=== PATIENT | female | born 1965 | race Caucasian/White ===

== ENCOUNTER 2020-05-22 09:35 | Outpatient (CLI) | payer OTHER, SELFPAY ==
--- NOTE | ~2020-05-22 | US_ITS ---
US breast LT limited 05/22/2020 10:20 Indication: Follow-up left breast masses Procedure: High-resolution Limited left breast ultrasound Comparison: 11/14/2019 Findings: Stable appearance to hypoechoic mass of the left breast at 3:00 near the nipple measuring 6 mm maximum dimension, possibly cluster of microcysts. Stable complicated cyst of the left breast at 3:00 near the nipple measuring 4.5 mm maximum dimension. Impression: 1: Stable likely benign left breast masses. BI-RADS CATEGORY 3-PROBABLY BENIGN FINDING RECOMMENDATION: Six-month follow-up diagnostic bilateral mammogram and left breast ultrasound recomme nded Reviewed, dictated and finalized at location A. Impression: 1: Stable likely benign left breast masses. BI-RADS CATEGORY 3-PROBABLY BENIGN FINDING RECOMMENDATION: Six-month follow-up diagnostic bilateral mammogram and left nikkie ast ultrasound recommended
== END 2020-05-22 09:36 | disposition home or self-care (01) ==
LOC: CHSIMG 09:37
PROVIDERS: PCP Nurse Practitioner Family; Visit Provider Nurse Practitioner Family
DX: R92.8 Other abnormal and inconclusive findings on diagnostic imaging of breast (principal)
CPT/HCPCS: 76642

== ENCOUNTER 2020-12-03 09:45 | Outpatient (CLI) | payer OTHER, SELFPAY ==
--- NOTE | ~2020-12-03 | MMUS_ITS ---
EXAMINATION: MM diagnostic scott BI w fuentes, US breast BI limited HISTORY: Follow-up left breast masses. TECHNIQUE: Additional 3-D tomosynthesis images of the breasts were performed and synthetic 2-D images were generated. CAD analysis was submitted and interpreted. High resolution bilateral breast ultraso und was performed. COMPARISON: Comparison to multiple prior studies sequentially, with oldest reviewed study dated 02/2012. BREAST PARENCHYMAL COMPOSITION: Breast composed of scattered areas of fibroglandular density. FINDINGS: MAMMOGRAPHIC FINDINGS: There is a radiolucent mass in the outer aspect of the right breast on CC view measuring approximatel y 6 mm, posterior third. There are no suspicious masses, calcifications or architectural distortion i n the left breast to suggest malignancy. ULTRASOUND: Right breast ultrasound: At 10:00, 2 cm from the nipple, there is a 6 mm oval hypoechoic mass with echogenic hilum, likely charito ign intramammary lymph node. At 9:00, 2 cm from the nipple, there is a 3 mm cyst. At 9:00, 2 cm from the nipple there is a second 3 mm cyst. Left breast ultrasound: At 3:00 near the nipple there is an oval hypoechoic mass with echogenic hilum measuring 8 mm, likely intramammary lymph node. At 3:00 near the nipple there is a second oval hypoechoic mass with echogeni c hilum measuring 6 mm, likely benign intramammary lymph node. IMPRESSION: 1. Probable benign bilateral intramammary lymph nodes by ultrasound. 2. Recommend 6 month follow-up bilateral breast ultrasound BI-RADS category 3, probably benign findings. Reviewed, dictated and finalized at location A. RAL FABRICATOR IMPRESSION: 1. Probable benign bilateral intramammary lymph nodes by ultrasound. 2. Recommend 6 month follow-up bilateral breast ultrasound BI-RADS category 3, probably benign findings.
== END 2020-12-03 09:46 | disposition home or self-care (01) ==
PROVIDERS: PCP Nurse Practitioner Family; Visit Provider Nurse Practitioner Family
DX: R92.8 Other abnormal and inconclusive findings on diagnostic imaging of breast (principal); Z12.4 Encounter for screening for malignant neoplasm of cervix; Z13.89 Encounter for screening for other disorder
CPT/HCPCS: 76642; 77062; 77066; 87624; 88175; G0145; G0279

== ENCOUNTER 2020-12-19 15:54 | Outpatient (NON) | payer OTHER, SELFPAY | END 2020-12-19 15:55 | LOC: CHSLAB 15:56 | PROVIDERS: PCP Nurse Practitioner Family; Visit Provider Nurse Practitioner Family | DX: Z12.4 Encounter for screening for malignant neoplasm of cervix (principal); Z13.89 Encounter for screening for other disorder | CPT/HCPCS: 87624; 88175; G0145 ==

== ENCOUNTER 2021-08-14 12:33 | Outpatient (CLI) | payer OTHER, SELFPAY ==
--- NOTE | ~2021-08-14 | US_ITS ---
US breast BI limited DATE: 08/14/2021 13:03 INDICATION: Short-term follow-up of bilateral probable benign findings TECHNIQUE: Targeted ultrasound examination at sites of prior abnormalities reported on 12/03/2020 bila teral Limited breast ultrasound examination COMPARISON: 12/03/2020 bilateral diagnostic mammogram and bilateral limited breast ultrasound FINDINGS: No suspicious mass or shadowing of either breast is detected. Right breast: 9:00 2 cm from nipple: 4.5 x 4.2 x 5 mm simple cyst 10:00 2 cm from nipple: Parallel circumscribed hypoechoic lesion without internal vascularity or susp icious shadowing, consistent with benign process Subareolar area: 1.8 x 1.4 x 1.2 mm cyst Left breast: 3:00 near nipple: Parallel circumscribed multiply septated cyst measuring 6.5 x 3.5 x 3.8 mm, without internal vascularity or suspicious shadowing, benign 3:00 near nipple: 1.8 x 1.4 x 2.0 mm simple cyst IMPRESSION: BI-RADS Category 2: Benign Recommendation: Routine mammographic screening Reviewed, dictated and finalized at Location A. Reviewed, dictated and finalized at location A.
== END 2021-08-14 12:34 | disposition home or self-care (01) ==
LOC: CHSIMG 12:35
PROVIDERS: PCP Nurse Practitioner Family; Visit Provider Nurse Practitioner Family
DX: R92.8 Other abnormal and inconclusive findings on diagnostic imaging of breast (principal)
CPT/HCPCS: 76642

== ENCOUNTER 2021-12-24 12:57 | Outpatient (CLI) | payer OTHER, SELFPAY ==
--- NOTE | ~2021-12-24 | MM_ITS ---
EXAMINATION: MM screening scott BI w fuentes HISTORY: Screening TECHNIQUE: Craniocaudal and mediolateral oblique 3-D tomosynthesis images were obtained and synthetic 2-D images were generated. CAD analysis was submitted and interpreted. COMPARISON: Comparison to multiple prior studies sequentially, with oldest reviewed study dated 02/2012. BREAST PARENCHYMAL COMPOSITION: There are scattered areas of fibroglandular density. FINDINGS: There is no evidence of suspicious mass, calcification, or architectural distortion to sugg est malignancy in either breast. There has been no suspicious interval change. IMPRESSION: 1. No mammographic evidence of malignancy. 2. Recommend routine screening mammography in one year. BI-RADS Category 1: Negative Reviewed, dictated and finalized at location A. [employer]ING [employer]IAN
--- NOTE | ~2021-12-24 | DEXA_ITS ---
Bone Density Report Name: ARIELLA ESPINOSA Age: 56 Sex: Female Ethnicity: White Date of : 1965 Indication: postmenopausal; screening for osteoporosis; height loss; prior fracture; Referring Provider: Jo-Ann Maciel Study: Bone densitometry was performed. Exam Date: December 24, 2021 Accession number: [id number] Bone Density: Region BMD T-score Z-score Classification AP Spine(L1, L2, L3) 0.865 -1.4 -0.3 Osteopenia Femoral Neck (Left) 0.668 -1.6 -0.6 Osteopenia Total Hip (Left) 0.768 -1.4 -0.7 Osteopenia Femoral Neck (Right) 0.658 -1.7 -0.6 Osteopenia Total Hip (Right) 0.829 -0.9 -0.2 Normal Femoral Neck Mean 0.663 -1.7 -0.6 Osteopenia Total Hip Mean 0.799 -1.2 -0.5 Osteopenia World Health Organization criteria for BMD impression classify patients as: Normal (T-score at or above -1.0), Osteopenia (T-score between -1.0 and -2.5), or Osteoporosis (T-score at or below -2.5). 10-year Fracture Risk(1): Major Osteoporotic Fracture 12% Hip Fracture 1.2% Reported Risk Factors: [place] (), Neck BMD=0.658, BMI=32.1, previous fracture (1) FRAX(R) Version 3.08. Fracture probability calculated for an untreated patient. Fracture probability may be lower if the patient has received treatment. Clinical Information Provided by Patient: Has had a low trauma fracture Has used the following medications: Fosamax (i.e. alendronate), Vitamin D Patient maximum height was 62 Menopause Age: 46 No regular weight bearing exercise Does not regularly consume dairy products Drinks caffeinated beverages Onset of menses at age 12 Number of children 4 Impression: The patient has low bone mass, based on the Right Femoral Neck T-score. The patient has risk factors, including: previous fracture. Discussion: BONE DENSITY IS LOW AT ONE OR MORE SKELETAL SITES. This patient's lowest T-score is low at one or more skeletal sites. It meets the World Health Organization's (WHO) criteria for ?low bone mass? (T-score between -1.0 and -2.5). The patient's 10-year risk of fracture as calculated by FRAX is less than the threshold where pharmacological therapy is recommended by the National Osteoporosis Foundation (NOF). However, all treatment decisions require clinical judgment and consideration of individual patient factors, including patient preferences, comorbidities, previous drug use, risk factors not captured in the FRAX model (e.g., frailty, falls, vitamin D deficiency, increased bone turnover, interval significant decline in bone density) and possible under or overestimation of fracture risk by FRAX. The patient should follow a healthful lifestyle (good nutrition with adequate calcium and vitamin D, and appropriate weight-bearing exercise). Follow-Up: Consider repeating this study in 2 to 3
== END 2021-12-24 12:58 | disposition home or self-care (01) ==
LOC: CHSIMG 12:59
PROVIDERS: PCP Nurse Practitioner Family; Visit Provider Nurse Practitioner Family
DX: M81.0 Age-related osteoporosis without current pathological fracture (principal); Z12.31 Encounter for screening mammogram for malignant neoplasm of breast
CPT/HCPCS: 77063; 77067; 77080; 77081

== ENCOUNTER 2024-08-12 09:54 | Outpatient (CLI) | payer OTHER, SELFPAY ==
--- NOTE | ~2024-08-12 | MM_ITS ---
EXAMINATION: MM screening scott BI w fuentes HISTORY: Screening TECHNIQUE: Craniocaudal and mediolateral oblique 3-D tomosynthesis images were obtained and synthetic 2-D images were generated. CAD analysis was submitted and interpreted. COMPARISON: Comparison to multiple prior studies sequentially, with oldest reviewed study dated 11/14. BREAST PARENCHYMAL COMPOSITION: Not dense: There are scattered areas of fibroglandular density. FINDINGS: There are developing bilateral breast masses. There are no suspicious calcifications or arc hitectural distortion. IMPRESSION: 1. Developing bilateral breast masses. 2. Additional mammographic views and possible breast ultrasound are recommended. BI-RADS Category 0: Incomplete: Needs additional imaging evaluation. Reviewed, dictated and finalized at location B. IMPRESSION: 1. Developing bilateral breast masses. 2. Additional mammographic views and possible breast ultrasound are recommended . BI-RADS Category 0: Incomplete: Needs additional imaging evaluation.
== END 2024-08-12 09:55 | disposition home or self-care (01) ==
LOC: CHSIMG 09:54
PROVIDERS: PCP Family Medicine; Visit Provider Nurse Practitioner Family
DX: Z12.31 Encounter for screening mammogram for malignant neoplasm of breast (principal); R92.8 Other abnormal and inconclusive findings on diagnostic imaging of breast
CPT/HCPCS: 77063; 77067

== ENCOUNTER 2024-08-18 08:10 | Outpatient (CLI) | payer OTHER, SELFPAY ==
--- NOTE | ~2024-08-18 | MMUS_ITS ---
EXAMINATION: MM diagnostic scott BI w fuentes, US breast RT limited HISTORY: Possible bilateral breast masses TECHNIQUE: Additional 3-D tomosynthesis images of the breasts were performed and synthetic 2-D images were generated. CAD analysis was submitted and interpreted. High resolution limited right breast ult rasound was performed. COMPARISON: 08/12/2024, 12/24/2021 BREAST PARENCHYMAL COMPOSITION:Not Dense. There are scattered areas of fibroglandular density. FINDINGS: MAMMOGRAPHIC FINDINGS: Spot compression views demonstrate probable persistent low-density masses in the right breast at the upper outer quadrant and lower inner quadrant, largest measuring 6 mm. Density in the left breast eff aces with spot compression. ULTRASOUND: At the 4:00 position right breast, near the nipple, there is a 4 mm hypoechoic round mass. No posteri or shadowing. At the 5:00 position right breast, 1 cm from the nipple, there is a 4 mm small hypoecho ic mass or possible cluster of microcysts. At the 9:00 position right breast, 3 cm the nipple, there is a 4 mm simple cyst. IMPRESSION: No evidence for malignancy. Subcentimeter probable benign lesions seen sonographically in the right breast, as above. Six-month f ollow-up ultrasound recommended to assure stability. BI-RADS category 3, probably benign findings. Reviewed, dictated and finalized at location . IMPRESSION: No evidence for malignancy. Subcentimeter probable benign lesions seen sonographically in the right breast, as above. Six-month follow-up ultrasound recommended to assure stability. BI-RADS category 3, probably benign findings.
== END 2024-08-18 08:11 | disposition home or self-care (01) ==
PROVIDERS: PCP Family Medicine; Visit Provider Nurse Practitioner Family
DX: N63.20 Unspecified lump in the left breast, unspecified quadrant (principal); N63.10 Unspecified lump in the right breast, unspecified quadrant
CPT/HCPCS: 76642; 77062; 77066; G0279

== ENCOUNTER 2024-10-13 15:55 | Emergency (ER) | payer OTHER, SELFPAY ==
--- NOTE | ~2024-10-13 | CT_ITS ---
EXAMINATION: CT abdomen pelvis w con DATE: 10/13/2024 19:27 INDICATION: right abd pain, flank pain TECHNIQUE: Computed tomography (CT) of the abdomen and pelvis was performed with 100 mL Omnipaque-350 intravenous contrast. Automated exposure control and iterative reconstruction technique were employe d. The dose-length product was 651.21 mGy-cm. COMPARISON: None. FINDINGS: Lower thorax: Small hiatal hernia. Liver: Scattered cysts. Biliary/Gallbladder: Gallbladder is normal. No bile duct dilation. Pancreas: No mass or duct dilation. Spleen: Normal. Adrenals:No mass. Kidneys: 3 mm left midpole calcification. Simple 1 cm right midpole cyst. Subcentimeter hypodensities that are too small to characterize but most likely represent cysts. Moderate right hydronephrosis. GI tract: Mild distal esophageal and gastric wall edema. No small or large bowel dilation. Normal cathy endix. Diverticulosis without diverticulitis. Uncomplicated sigmoid anastomosis. 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 Mesentery/Peritoneum: No ascites, mass, or free air. Retroperitoneum: No mass. Pelvis: 7 mm calcification in the distal right ureter. Normal uterus. Bilateral ovaries not confident ly identified. Normal urinary bladder.. Soft Tissues: Small fat-containing uncomplicated umbilical hernia. Bones: No acute osseous finding. Bilateral L5 pars defects. Grade 2 anterolisthesis at L5-S1. IMPRESSION: Mild esophagitis/gastritis. 7 mm distal right ureteral stone causing moderate obstructive uropathy. Reviewed, dictated and finalized at location K. [employer]
[2024-10-13 15:57] VITALS: BP 147/73; PULSE 98; RESP 18; TEMP 36.5; O2SAT 100
--- NOTE | 2024-10-13 16:09 | ED.ABDPAIN ---
HPI - Abdominal Pain General Chief Complaint: Urogenital-Female <Clau Broderick PA-C - Last Filed: 10/17/24 18:26> Stated Complaint: right flank pain <SALONI Whitt Last Filed: 10/17/24 18:26> Time Seen by Provider: 10/13/24 16:09 <SALONI Whitt Last Filed: 10/17/24 18:26> Focused HPI: This is a 59 year old female that presents to the ER for right flank pain. Reports pain in the right lower quadrant as well. Ongoing since early this morning. Denies fever, vomiting, diarrhea, dysuria, hematuria. GENERAL: Uncomfortable, well-nourished, and in no acute distress. HEAD: Normocephalic, atraumatic. CHEST: Clear to auscultation. ?No respiratory distress. HEART: Regular rate and rhythm.? NEURO: ?Alert and oriented x3. Patient screened in triage and initial orders placed.? ?Additional care and disposition to be based upon?diagnostic testing and treatment. <Clau Broderick PA-C - Last Filed: 10/17/24 18:26> Focused HPI: This is a 59 year old female that presents to the ER for right flank pain. Reports pain in the right lower quadrant as well. Ongoing since early this morning. Denies fever, vomiting, diarrhea, dysuria, hematuria. GENERAL: Uncomfortable, well-nourished, and in no acute distress. HEAD: Normocephalic, atraumatic. CHEST: Clear to auscultation. ?No respiratory distress. HEART: Regular rate and rhythm.? NEURO: ?Alert and oriented x3. Patient screened in triage and initial orders placed.? ?Additional care and disposition to be based upon?diagnostic testing and treatment. <SALONI Lerner Last Filed: 10/13/24 23:27> Source: patient <SALONI Lerner Last Filed: 10/13/24 23:27> Mode of arrival: ambulatory <SALONI Lerner Last Filed: 10/13/24 23:27> Limitations: no limitations <Meghan Sarmiento PA-C - Last Filed: 10/13/24 23:27> History of Present Illness HPI narrative: Agree with above HPI. Pain began around 2:00 a.m.. Patient denies any active pain right now. Did take ibuprofen earlier today. No previous history of kidney stones. <Meghan Sarmiento PA-C - Last Filed: 10/13/24 23:27> Related Data Home Medications: Home Medications ?Medication ?Instructions ?Recorded ?Confirmed ?Last Taken ?Type calcium 600 mg (as cap PO DAILY 11/15/19 06/06/22 Unknown History carbonate)-vitamin D3 5 mcg (200 unit) capsule <Clau Broderick PA-C - Last Filed: 10/17/24 18:26> Allergies/Adverse Reactions: Allergies Allergy/AdvReac Type Severity Reaction Status Date / Time No Known Allergies Allergy Verified 09/04/23 07:55 <Clau Broderick PA-C - Last Filed: 10/17/24 18:26> Review of Systems Review of Systems: All systems reviewed & are unremarkable except as noted in HPI. <Meghan Sarmiento PA-C - Last Filed: 10/13/24 23:27> All systems reviewed & are unremarkable except as noted in HPI and below <Meghan Sarmiento PA-C - Last Filed: 10/13/24 23:27> [facility] Past Medical History Medical History: Medical History Screening for malignant neoplasm of breast Screening for malignant neoplasm of colon Screening for malignant neoplasm of cervix Abnormal mammogram Excessive cerumen in left ear canal Osteoporosis Radicular neuropathy <Clau Broderick PA-C - Last Filed: 10/17/24 18:26> Surgical History Surgical History: Surgical History History of back surgery History of partial colectomy Hx of section x4 <Clau Broderick PA-C - Last Filed: 10/17/24 18:26> Family History Family History: Family History Father No problems noted. <Clau Broderick PA-C - Last Filed: 10/17/24 18:26> Social History Social History: Social History Smoking status: Former smoker Tobacco type: cigarettes Smoking end date: 10/19/01 Alcohol intake: current Alcohol use details: social Substance use: never Substance use type: does not use Living arrangements: with family Occupation/Education: occupation <Clau Broderick PA-C - Last Filed: 10/17/24 18:26> Exam Narrative: GENERAL: Well appearing, obese with BMI of 31.2, non-toxic, in no acute distress. HEAD: Normocephalic, atraumatic. RESPIRATORY: Airway patent, respirations nonlabored. Clear to auscultation bilaterally, no rales, rhonchi, wheezing. CARDIOVASCULAR: Regular rate and rhythm without murmurs, rubs, or gallops. ABDOMINAL: Soft, no significant tenderness throughout abdomen, nondistended. Normoactive BS. No significant CVA tenderness to percussion. MUSCULOSKELETAL: Moves all extremities. No gross deformities. SKIN: Warm, dry, normal color. NEURO: A&O X3. Speech clear. Cranial nerves II-XII grossly intact. Steady gait. No ataxic movements. PSYCHIATRIC: Appropriate mood and affect. Normal interaction. <Meghan Sarmiento PA-C - Last Filed: 10/13/24 23:27> Course Vital Signs Vital signs: Vital Signs Temperature 97.7 F 10/13/24 15:57 Pulse Rate 98 10/13/24 15:57 Respiratory Rate 18 10/13/24 15:57 Blood Pressure 147/73 H 10/13/24 15:57 Pulse Oximetry 100 10/13/24 15:57 Oxygen Delivery Room Air 10/13/24 15:57 Temperature 98.1 F 10/13/24 22:00 Pulse Rate 74 10/13/24 22:00 Respiratory Rate 16 10/13/24 22:00 Blood Pressure 126/70 10/14/24 00:05 Pulse Oximetry 100 10/13/24 22:00 Oxygen Delivery Room Air 10/13/24 15:57 <Clau Broderick PA-C - Last Filed: 10/17/24 18:26> Vital Signs Temperature 97.7 F 10/13/24 15:57 Pulse Rate 98 10/13/24 15:57 Respiratory Rate 18 10/13/24 15:57 Blood Pressure 147/73 H 10/13/24 15:57 Pulse Oximetry 100 10/13/24 15:57 Oxygen Delivery Room Air 10/13/24 15:57 Temperature 98.1 F 10/13/24 22:00 Pulse Rate 74 10/13/24 22:00 Respiratory Rate 16 10/13/24 22:00 Blood Pressure 126/70 10/14/24 00:05 Pulse Oximetry 100 10/13/24 22:00 Oxygen Delivery Room Air 10/13/24 15:57 <SALONI Lerner Last Filed: 10/13/24 23:27> MDM - Abdominal Pain MDM Narrative Medical decision making narrative: Patient presented to ED with right flank and abdominal pain onset this morning. Vital signs stable. Pain nearly resolved at the time of my evaluation. Very tolerable at this time. CT scan of abdomen/pelvis showing distal right-sided ureteral stone, measuring 7 mm. Consistent with clinical picture. This is patient's 1st kidney stone. Cbc is with white blood cell count of 13.5, though patient has been afebrile here and throughout today. Kidney function is stable. Urine without significant signs of infection. Was sent for culture. Given that patient's pain is very well controlled at this time, feel she is safe for discharge home with outpatient urology follow-up. Discussed case with Dr. Grimes, urology, agrees w/ plan for OP f/u with pain control/flomax/strainer. Patient in agreement with plan. Pain medications sent to pharmacy. Discussed decreased possibility of passing stone on her own and gave strict return precautions. She voiced understanding. Discharged in stable condition. <SALONI Lerner Last Filed: 10/13/24 23:27> Medical Records Attestation: I reviewed the patient's medical records. <SALONI Lerner Last Filed: 10/13/24 23:27> Lab Data Attestation: I reviewed the patient's lab results. <Meghan Sarmiento PA-C - Last Filed: 10/13/24 23:27> Result diagrams: 10/13/24 18:30 10/13/24 18:30 <Clau Broderick PA-C - Last Filed: 10/17/24 18:26> Labs: Lab Results 10/13/24 10/13/24 Range/Units 18:30 21:33 WBC 13.5 H (4.5-10.0) K/mm3 RBC 5.18 (4.2-5.4) M/mm3 Hgb 15.3 H (12.0-15.0) g/dL Hct 45.3 (37.0-47.0) % MCV 87.5 (80-100) fl MCH 29.5 (26-34) pg MCHC 33.8 (32-36) g/dl RDW 12.7 (11.5-14.5) % Plt Count 312 (150-375) k/mm3 MPV 9.2 (7.4-10.4) fl Immature Gran % (Auto) 0.3 (0-0.5) % Neut % (Auto) 82.8 H (45.5-73.1) % Lymph % (Auto) 10.2 L (18.3-44.2) % [place] % (Auto) 6.2 (2.6-8.5) % Eos % (Auto) 0.1 (0-4.4) % Baso % (Auto) 0.4 (0.2-1.2) % Lymph # (Auto) 1.37 (0.9-3.2) K/mm3 [place] # (Auto) 0.8 H (0.1-0.6) K/mm3 Eos # (Auto) 0.0 (0-0.3) K/mm3 Baso # (Auto) 0.1 (0.0-0.1) K/mm3 Abs Immat Gran (auto) 0.04 H (0.00-0.031) K/mm3 Absolute Neuts (auto) 11.2 H (1.3-6.7) K/mm3 Absolute Nucleated RBC 0.000 (0.0-0.012) K/mm3 Nucleated RBC % 0.0 (0.0-0.2) % Sodium 136 L (137-145) mmol/L Potassium 3.8 (3.4-5.0) mmol/L Chloride 108 H (98-107) mmol/L Carbon Dioxide 25 (22-30) mmol/L Anion Gap 3 L (4-12) mmol/L BUN 12 (7-17) mg/dL Creatinine 0.80 (0.7-1.0) mg/dL Estim Creat Clear Calc 62 ml/min Estimated GFR > 60 (59 - ) Glucose 102 (65-110) mg/dL Calcium 9.8 (8.4-10.2) mg/dL Total Bilirubin 0.9 (0.2-1.3) mg/dL AST 23 (14-36) U/L ALT 20 (6-35) U/L Alkaline Phosphatase 64 (38-126) U/L Total Protein 8.0 (6.3-8.2) g/dL Albumin 4.7 (3.5-5.1) g/dL Lipase 66 (23-300) U/L Urine Color Yellow (Yellow) Urine Appearance Clear (Clear) Urine pH 5.0 (5.0-9.0) Ur Specific [place] > 1.045 H (1.001-1.035) Urine Protein Negative (Negative) mg/dL Urine Glucose (UA) Negative (Negative) mg/dL Urine Ketones 1+ H (Negative) mg/dL Ur Blood (Man) 1+ H (Negative) Urine Nitrate Negative (Negative) Urine Bilirubin Negative (Negative) Urine Urobilinogen 0.2 (<2.0) mg/dL Leukocyte Esterase Rfl Negative (Negative) DEBORAH/UL Urine RBC 6-10 H (0-2) /hpf Urine WBC 6-10 H (0-3) /hpf Ur Squamous Epith Cells None seen (Few) /hpf Urine Bacteria None seen /hpf Urine Casts 0-2 <Clau Broderick PA-C - Last Filed: 10/17/24 18:26> Lab Results 10/13/24 10/13/24 Range/Units 18:30 21:33 WBC 13.5 H (4.5-10.0) K/mm3 RBC 5.18 (4.2-5.4) M/mm3 Hgb 15.3 H (12.0-15.0) g/dL Hct 45.3 (37.0-47.0) % MCV 87.5 (80-100) fl MCH 29.5 (26-34) pg MCHC 33.8 (32-36) g/dl RDW 12.7 (11.5-14.5) % Plt Count 312 (150-375) k/mm3 MPV 9.2 (7.4-10.4) fl Immature Gran % (Auto) 0.3 (0-0.5) % Neut % (Auto) 82.8 H (45.5-73.1) % Lymph % (Auto) 10.2 L (18.3-44.2) % [place] % (Auto) 6.2 (2.6-8.5) % Eos % (Auto) 0.1 (0-4.4) % Baso % (Auto) 0.4 (0.2-1.2) % Lymph # (Auto) 1.37 (0.9-3.2) K/mm3 [place] # (Auto) 0.8 H (0.1-0.6) K/mm3 Eos # (Auto) 0.0 (0-0.3) K/mm3 Baso # (Auto) 0.1 (0.0-0.1) K/mm3 Abs Immat Gran (auto) 0.04 H (0.00-0.031) K/mm3 Absolute Neuts (auto) 11.2 H (1.3-6.7) K/mm3 Absolute Nucleated RBC 0.000 (0.0-0.012) K/mm3 Nucleated RBC % 0.0 (0.0-0.2) % Sodium 136 L (137-145) mmol/L Potassium 3.8 (3.4-5.0) mmol/L Chloride 108 H (98-107) mmol/L Carbon Dioxide 25 (22-30) mmol/L Anion Gap 3 L (4-12) mmol/L BUN 12 (7-17) mg/dL Creatinine 0.80 (0.7-1.0) mg/dL Estim Creat Clear Calc 62 ml/min Estimated GFR > 60 (59 - ) Glucose 102 (65-110) mg/dL Calcium 9.8 (8.4-10.2) mg/dL Total Bilirubin 0.9 (0.2-1.3) mg/dL AST 23 (14-36) U/L ALT 20 (6-35) U/L Alkaline Phosphatase 64 (38-126) U/L Total Protein 8.0 (6.3-8.2) g/dL Albumin 4.7 (3.5-5.1) g/dL Lipase 66 (23-300) U/L Urine Color Yellow (Yellow) Urine Appearance Clear (Clear) Urine pH 5.0 (5.0-9.0) Ur Specific [place] > 1.045 H (1.001-1.035) Urine Protein Negative (Negative) mg/dL Urine Glucose (UA) Negative (Negative) mg/dL Urine Ketones 1+ H (Negative) mg/dL Ur Blood (Man) 1+ H (Negative) Urine Nitrate Negative (Negative) Urine Bilirubin Negative (Negative) Urine Urobilinogen 0.2 (<2.0) mg/dL Leukocyte Esterase Rfl Negative (Negative) DEBORAH/UL Urine RBC 6-10 H (0-2) /hpf Urine WBC 6-10 H (0-3) /hpf Ur Squamous Epith Cells None seen (Few) /hpf Urine Bacteria None seen /hpf Urine Casts 0-2 <SALONI Lerner Last Filed: 10/13/24 23:27> Imaging Data Attestation: I personally reviewed and interpreted this imaging study as follows: <SALONI Lerner Last Filed: 10/13/24 23:27> Radiologist's impression: ITS Impressions Abdomen/Pelvis CT 10/13/24 19:31 IMPRESSION: Mild esophagitis/gastritis. 7 mm distal right ureteral stone causing moderate obstructive uropathy. <SALONI Whitt Last Filed: 10/17/24 18:26> ITS Impressions Abdomen/Pelvis CT 10/13/24 19:31 IMPRESSION: Mild esophagitis/gastritis. 7 mm distal right ureteral stone causing moderate obstructive uropathy. <SALONI Lerner Last Filed: 10/13/24 23:27> Critical Care Time Critical Care Time Critical Care Time: No <SALONI Whitt Last Filed: 10/17/24 18:26> Discharge Plan Discharge Clinical Impression: Calculus of distal right ureter <SALONI Whitt Last Filed: 12/30/24 18:26> Patient Disposition: Home, Self-Care <SALONI Whitt Last Filed: 10/17/24 18:26> Condition: Stable <SALONI Whitt Last Filed: 10/17/24 18:26> Instructions: Antibiotic Form, Kidney Stones (ED), How to Strain Your Urine (ED) <SALONI Whitt Last Filed: 10/17/24 18:26> Additional Instructions: Take Flomax daily as prescribed. Continue Tylenol and Ibuprofen as needed for pain. [place] as needed for more severe pain. Zofran for nausea. Stay well hydrated. Strain urine to collect stone. Call Urology in the morning to make a follow-up appointment for further care. Return to the ED if you experience worsening or severe pain, unable to keep down food/drink, fevers, uncontrollable nausea/vomiting, unable to urinate, or any other symptoms of concern. <Clau Broderick PA-C - Last Filed: 10/17/24 18:26> Patient Language: Romansh <SALONI Whitt Last Filed: 10/17/24 18:26> Prescriptions: New hydrocodone-acetaminophen 5-325 mg tablet 1 tablet PO Q6H PRN (Reason: pain) Qty: 15 0RF tamsulosin [Flomax] 0.4 mg capsule 0.4 mg PO DAILY Qty: 14 0RF ondansetron 4 mg tablet,disintegrating 4 mg PO Q8H PRN (Reason: nausea and vomiting) Qty: 15 0RF No Action calcium carbonate-vitamin D3 600 mg calcium- 200 unit capsule PO DAILY amoxicillin-pot clavulanate [Augmentin] 500-125 mg tablet 1 tablet PO TID Qty: 21 0RF rizatriptan [Maxalt] 10 mg tablet 10 mg PO Q2-4H PRN (Reason: migraine headache) Qty: 9 0RF Rx Instructions: PRN may repeat in 2 hours. No more than 3 doses per day. Paxlovid 300 mg (150 mg x 2)-100 mg tablets,dose pack See Rx Instructions PO .COMPLEX Qty: 30 0RF Rx Instructions: take TWO 150 mg tablets of nirmatrelvir with ONE 100 mg tablet of ritonavir twice daily for 5 days PO alendronate 70 mg tablet See Rx Instructions .ROUTE .COMPLEX Qty: 12 2RF Dose Instruction: TAKE ONE TABLET BY MOUTH ONCE A WEEK Rx Instructions: TAKE ONE TABLET BY MOUTH ONCE A WEEK <Clau Broderick PA-C - Last Filed: 10/17/24 18:26> Follow-up/Referrals: Jalen Oviedo DO [Primary Care Provider] - Mango Grimes MD [Physician] - (UROLOGY) <Clau Broderick PA-C - Last Filed: 10/17/24 18:26> Time of Disposition: 23:21 <Clau Broderick PA-C - Last Filed: 10/17/24 18:26> 23:21 <Meghan Sarmiento PA-C - Last Filed: 10/13/24 23:27>
[2024-10-13 18:30] VITALS: BP 117/66; PULSE 84; RESP 16; O2SAT 100
[2024-10-13 18:37] LABS: Basophils Absolute Auto 0.1 K/mm3 (0.0-0.1); Basophils Percent Auto 0.4 % (0.2-1.2); Eosinophils Percent Auto 0.1 % (0-4.4); Hematocrit 45.3 % (37.0-47.0); Hemoglobin 15.3 g/dL (12.0-15.0); Immature Granulocyte Absolute 0.04 K/mm3 (0.00-0.031); Immature Granulocyte Percent A 0.3 % (0-0.5); Lymphocytes Absolute Auto 1.37 K/mm3 (0.9-3.2); Lymphocytes Percent Auto 10.2 % (18.3-44.2); Mean Corpuscular HGB Conc 33.8 g/dl (32-36); Mean Corpuscular Hemoglobin 29.5 pg (26-34); Mean Corpuscular Volume 87.5 fl (80-100); Mean Platelet Volume 9.2 fl (7.4-10.4); Monocytes Absolute Auto 0.8 K/mm3 (0.1-0.6); Monocytes Percent Auto 6.2 % (2.6-8.5); Neutrophils Absolute Auto 11.2 K/mm3 (1.3-6.7); Neutrophils Percent Auto 82.8 % (45.5-73.1); Platelet Count Result 312 k/mm3 (150-375); Red Blood Count 5.18 M/mm3 (4.2-5.4); Red Cell Distribution Width 12.7 % (11.5-14.5); White Blood Count 13.5 K/mm3 (4.5-10.0)
[2024-10-13 18:49] LABS: Alanine Aminotransferase 20 U/L (6-35); Albumin Level 4.7 g/dL (3.5-5.1); Alkaline Phosphatase 64 U/L (38-126); Anion Gap 3 mmol/L (4-12); Aspartate Amino Transferase 23 U/L (14-36); Bilirubin,Total 0.9 mg/dL (0.2-1.3); Blood Urea Nitrogen 12 mg/dL (7-17); Calcium 9.8 mg/dL (8.4-10.2); Carbon Dioxide 25 mmol/L (22-30); Chloride 108 mmol/L (98-107); Estimated CRCL calculation 62 ml/min; Estimated Glomerular Filt Rate > 60; Glucose 102 mg/dL (65-110); Lipase 66 U/L (23-300); Potassium 3.8 mmol/L (3.4-5.0); Sodium 136 mmol/L (137-145)
[2024-10-13 21:47] LABS: Add Urine Microscopic? YES; Appearance Urine Clear (Clear); Bacteria Urine None Seen /hpf; Bilirubin Urine Negative (Negative); Blood Urine 1+ (Negative); Color Urine Yellow (Yellow); Glucose Urine UA Negative (Negative); Ketones Urine 1+ mg/dL (Negative); Leukocyte Esterase Ur Negative LEU/UL (Negative); Nitrate Urine Negative (Negative); Non Pathogenic Casts 0-2; Protein Urine Negative (Negative); Specific Grav Ur > 1.045 (1.001-1.035); Squamous Epithelial Cell Urine None Seen /hpf (Few); Urobilinogen Urine 0.2 mg/dL (<2.0)
[2024-10-13 22:00] VITALS: BP 138/84; PULSE 74; RESP 16; TEMP 36.7; O2SAT 100
[2024-10-13] MEDS: ACETAMINOPHEN 325 MG TABLET 650 MG PO (23:58)
[2024-10-13] MEDS: HYDROcodone/acetaminophen (*CRX) 5-325 MG TABLET 1 TAB PO (23:58)
[2024-10-13] MEDS: ONDANSETRON INJ 4 MG/2 ML VIAL IV PUSH (23:58)
[2024-10-13] MEDS: KETOROLAC 30 MG/ML VIAL (*BKC) IV PUSH (23:59)
[2024-10-14 00:05] VITALS: BP 126/70
[2024-10-14] MEDS: TAMSULOSIN HCL 0.4 MG CAPSULE PO (00:06)
== END 2024-10-14 00:05 | disposition home or self-care (01) ==
PROVIDERS: Physician Assistant; Emergency Provider Physician Assistant; PCP Family Medicine
DX: N20.1 Calculus of ureter (principal); M81.0 Age-related osteoporosis without current pathological fracture; M54.10 Radiculopathy, site unspecified
CPT/HCPCS: 36415; 74177; 80053; 81001; 83690; 85025; 87086; 96374; 96375; 99284; A9270; J1885; J2405; Q9967

== ENCOUNTER 2024-11-01 01:35 | Day surgery (SDC) | payer OTHER, SELFPAY ==
[2024-10-24 13:54] VITALS: BMI 31.2
--- NOTE | 2024-10-24 14:04 | PC.NURSE ---
Report to the Outpatient Waiting Room, entrance under the green pavilion located off [facility], at time _1215_ on date _[id number]_. Planned Procedure Time: _215pm_.? Time changes happen often and if your time is changed the preop area will call you the afternoon before. - You and your visitor will be asked to self-screen and do not enter if you have any COVID symptoms. Please call surgeon if you need to reschedule. - A mask is optional within the hospital at this time. Patients may have clear liquids (water, carbonated beverages, clear teas, apple juice) until 3 hours prior to surgery with a maximum of 20 ounces. - No food from midnight until time of surgery and no smoking. This includes no chewing gum, candy or mints. Take only the following medications with a SIP of water on the morning of surgery: ____If needed may take zofran, tylenol and or hydrocodone. DO NOT STOP ANY OF YOUR OTHER PRESCRIPTION MEDICATIONS PRIOR TO SURGERY EXCEPT THE FOLLOWING Medications to discontinue per physician ____Patient says told to stop Ibuprofen 7 days prior to surgery. Date to take last izws__[id number] Please no make-up, nail mongolian, hairspray, perfume, deodorant, or body powder the day of surgery.? No jewelry (including any body piercings) or valuables the day of surgery, leave them at home.? Please take a shower or bath the night before, or the morning of, surgery with an antibacterial soap.? Wear comfortable, loose fitting clothing.? - Jewelry must be removed prior to entering the operating room.? Rings and piercings that are not removed may be cut off. - The hospital will not accept responsibility for valuables.? - Please leave all valuables, including medications, at home the day of surgery. If you are going home after surgery, a licensed dray driver must drive you home.? - NO public transportation without another adult if you receive anesthesia. - We recommend that an adult stay with you for 24 hours following discharge. - We also recommend that you do not drive, make important decision, drink alcoholic beverages, or take any drugs that were not prescribed by your health care provider for at least 24 hours after your discharge time. Follow any additional instructions given to you from your surgeon. Telephone instructions given to __Becky__and asked if any additional questions and then verbalized understanding. Patient advised to call surgeon office or pre surgery nurse liaison [phone] if any additional questions.
[2024-11-01] VITALS (11 sets, daily range): BP systolic 111–140; BP diastolic 53–85; PULSE 58–98; RESP 8–20; TEMP 36.4; O2SAT 100
--- NOTE | ~2024-11-01 | XR_ITS ---
EXAMINATION: XR abdomen/kub 1V DATE: 11/01/2024 12:02 INDICATION: Nephrolithiasis for preoperative evaluation. TECHNIQUE: A supine view of the abdomen on 2 radiographs was obtained. COMPARISON: CT dated 10/13/2024 FINDINGS: No change in position of a 6 mm distal right ureteral stone in the right hemipelvis. There is also an unchanged 2-3 mm stone projecting over the lower pole of the left kidney. Anastomotic suture line in the pelvis. No bowel obstruction. Mild lumbar levocurvature. IMPRESSION: 1. Nephrolithiasis with unchanged 6 mm distal right ureteral stone and 2-3 mm stone at the lower pole the left kidney. Reviewed, dictated and finalized at location B. ICK HELPER IMPRESSION: 1. Nephrolithiasis with unchanged 6 mm distal right ureteral stone and 2-3 mm s tone at the lower pole the left kidney.
--- NOTE | ~2024-11-01 | XR_ITS ---
INTRAOPERATIVE FLUOROSCOPY: CLINICAL HISTORY: 59 years old Female; RIGHT RETRO/STENT PROCEDURE COMMENTS: Limited intraoperative fluoroscopy of the abdomen was performed. CUMULATIVE DOSE: 5.7 mGy FLUOROSCOPY TIME: 17 seconds FINDINGS/IMPRESSION: Please refer to operative note for further details. Reviewed, dictated and finalized at location A. COOK
--- NOTE | 2024-11-01 10:35 | WPDHPUPDATE1 ---
History and Physical Update Update Date/Time: 11/01/24 10:35 History and Physical has been reviewed, including an updated exam of the patient. There are NO changes in the patient's condition. Risks, benefits, and alternatives have been discussed and questions answered. Patient agrees to proceed with procedure.
[2024-11-01] MEDS: LACTATED RINGERS 1,000 ML 30 ML IV CONT (12:50)
--- NOTE | 2024-11-01 13:13 | WPDANESEPPF ---
Anes - Initial Pre Proc Eval Procedure: Operation Date: 11/01/24 13:45 Proposed Procedures p Cystoscopy, Right Ureteroscopy, Possible Right Retrograde Pyelogram, Possible Right Stone Extraction, Possible Right Stent Placement, Possible Holmium Laser - Zachery Campos MD Date/Time: 11/01/24 13:13 Surgeon: Zachery Campos MD Pre Op Diagnosis: right ureteral stone Patient Data Age: 59 Gender: F Height: 1.55 m Weight: 72.2 kg Last Vital Signs Temp 36.4 C 11/01/24 12:20 Pulse 64 11/01/24 12:20 Resp 20 11/01/24 12:20 BP 128/58 L 11/01/24 12:20 Pulse Ox 100 11/01/24 12:20 O2 Del Method Room Air 11/01/24 12:20 Allergies Allergy/AdvReac Type Severity Reaction Status Date / Time No Known Allergies Allergy Verified 11/01/24 12:41 Home Medications ?Medication ?Instructions ?Recorded ?Confirmed ?Type rizatriptan 10 mg tablet (Maxalt) 10 mg PO Q2-4H PRN migraine 09/04/23 10/24/24 Rx headache #9 tabs hydrocodone 5 mg-acetaminophen 325 1 tablet PO Q6H PRN pain #15 tabs 10/13/24 11/01/24 Rx mg tablet ondansetron 4 mg disintegrating 4 mg PO Q8H PRN nausea and 10/13/24 11/01/24 Rx tablet vomiting #15 tabs tamsulosin 0.4 mg capsule (Flomax) 0.4 mg PO DAILY #14 caps 10/13/24 11/01/24 Rx famotidine 20 mg tablet (Acid 20 mg PO DAILY PRN acid reflux 10/24/24 11/01/24 History Controller) ibuprofen 200 mg tablet 200 mg PO Q6H PRN pain 10/24/24 11/01/24 History Patient hx anesthesia problems: none Family hx anesthesia problems: none Results Review: All pre-operative results and documents have been reviewed as part of the pre-operative evaluation. [facility] Past Medical History Medical History Screening for malignant neoplasm of breast Screening for malignant neoplasm of colon Screening for malignant neoplasm of cervix Abnormal mammogram Excessive cerumen in left ear canal Osteoporosis Radicular neuropathy Surgical History Surgical History History of back surgery History of partial colectomy Hx of section x4 Family History Family History Father No problems noted. Social History Social History Years smoked: 14 Smoking status: Former smoker Tobacco type: cigarettes Smoking end date: 10/24/01 Alcohol intake: current Alcohol use details: social Substance use: never Substance use type: does not use Living arrangements: with family Occupation/Education: occupation Spiritual care concerns: No Anes - Eval Final PreProcedure Day of Procedure 11/01/24 13:13 Patient weight: obese Heart: regular rate and rhythm Lungs: clear to auscultation Airway: Mallampati scale class II Neurological: alert and oriented Last oral intake: >/= 8 hours ASA classification: II Emergent: no Anesthetic plan: proceed Anesthesia type and monitoring: general LMA and standard monitoring Results Review: All pre-operative results and documents have been reviewed as part of the pre-operative evaluation. Informed Consent: The patient's anesthetic plan and its attendant risks and benefits were discussed with the patient/family/POA. Questions were solicited and answers provided to the satisfaction of the patient/family/POA.
[2024-11-01] MEDS: ceFAZolin 2 GM/D5W 50 ML 2 GM/50 ML BAG IVPB (13:54)
[2024-11-01] MEDS: LIDOCAINE 2% GEL UROJET 10 ML PKG MUCOUS MEM (14:13)
--- NOTE | 2024-11-01 14:24 | P.OP_ITS ---
Procedure Note - Detailed Date of Procedure 11/01/24 Pre-op Diagnosis right ureteral stone Post-op Diagnosis Same Procedure Performed Cystoscopy, right retrograde, right ureteroscopy with holmium laser, stone extraction, right ureteral stent placement 4.8 Nigerian contour Surgeon Zachery Campos MD Anesthesia General Description of Procedure Patient was taken to the operative suite correctly identified. Once anesthesia was obtained she was placed in the dorsal lithotomy position and prepped and draped usual sterile fashion. Twenty-two Nigerian scope was inserted into the bladder. There were no tumors noted. The right ureteral orifice was cannulated with a guidewire. I dilated the orifice with an 8/10 dilator. Rigid ureteral scope was inserted into the right ureter. The stone was visualized. It was too large to retrieve in 1 piece. Using a 240 micron fiber I lasered the stone multiple pieces. These were retrieved using escape basket and sent for analysis. Reinspection revealed no residual stones. Retrograde pyelogram was then performed confirm placement of the stent. She does have somewhat of a tortuous proximal ureter. 4.8 Nigerian contour stent was then placed with the proximal end coiled in the renal pelvis and the distal end in the bladder. Bladder was drained. Patient is taken recovery stable condition. She will follow-up in a week for stent removal. This completes dictation. Please send a copy of op note to my office. Drains Yes Packing No Pathology Yes Complications No immediate complications Condition Stable Disposition PACU
[2024-11-01] MEDS: fentaNYL CITRATE INJ (*CRX) 100 MCG/2 ML VIAL 25 MCG IV PUSH ×2 (15:05→15:18)
[2024-11-01] MEDS: oxyBUTYnin CHLORIDE 5 MG TABLET PO (16:17)
[2024-11-01] MEDS: oxyCODONE HCL (*CRX) 5 MG TAB IR PO (16:17)
== END 2024-11-01 17:25 | disposition home or self-care (01) ==
PROVIDERS: PCP Family Medicine; Visit Provider Urology
PROC: (CPT 52352; principal; 2024-11-01 13:45)
DX: N20.1 Calculus of ureter (principal); M81.0 Age-related osteoporosis without current pathological fracture; M54.10 Radiculopathy, site unspecified; E66.9 Obesity, unspecified; Z68.30 Body mass index [BMI] 30.0-30.9, adult; Z79.891 Long term (current) use of opiate analgesic; Z79.1 Long term (current) use of non-steroidal anti-inflammatories (NSAID); Z98.890 Other specified postprocedural states; Z90.49 Acquired absence of other specified parts of digestive tract; Z98.1 Arthrodesis status; Z87.891 Personal history of nicotine dependence; Z80.3 Family history of malignant neoplasm of breast; Z82.49 Family history of ischemic heart disease and other diseases of the circulatory system
CPT/HCPCS: 52356; 74018; 74420; 82365; 88300; A9270; C1769; C2617; J0690; J1100; J2250; J2405; J2704; J3010; J7120; Q9966

== ENCOUNTER 2024-12-26 12:21 | Outpatient (CLI) | payer OTHER, SELFPAY ==
--- NOTE | ~2024-12-26 | US_ITS ---
EXAMINATION: US retroperitoneal comp DATE: 12/26/2024 12:43 INDICATION: Right ureteral stone. TECHNIQUE: Multiple ultrasound grayscale images of the kidneys were obtained. COMPARISON: CT abdomen and pelvis 10/13/2024 FINDINGS: The right kidney measures 10.4 x 4.8 x 5.1 cm. The left kidney measures 9.4 x 5.5 x 6.7 cm. The kidne ys demonstrate normal parenchymal echogenicity. There is no hydronephrosis. The bladder is normal. IMPRESSION: 1. Normal kidneys. No hydronephrosis. Reviewed, dictated and finalized at location B.
== END 2024-12-26 12:22 | disposition home or self-care (01) ==
PROVIDERS: PCP Family Medicine; Visit Provider Urology
DX: N20.1 Calculus of ureter (principal)
CPT/HCPCS: 76770

== ENCOUNTER 2025-02-14 09:46 | Outpatient (CLI) | payer OTHER, SELFPAY ==
--- NOTE | ~2025-02-14 | US_ITS ---
EXAMINATION TYPE: US breast RT limited COMPARISON: 08/18/2024 REASON FOR STUDY: N63.10 - Unspecified lump in the right breast, unspecifie... TECHNIQUE: Targeted sonographic evaluation of the right breast was performed. INTERPRETATION: At the 4:00 position right breast near the nipple, there is a 5 mm simple anechoic cyst. At the 5:00 position, 1 cm from the nipple, there is a 6 x 4 x 4 mm lobulated mass, overall probably wider than t all. At the 9:00 position right breast, 3 cm from the nipple, there is a 5 x 3 x 3 mm hypoechoic mass , wider than tall. There is an additional 6 mm simple cyst in this region as well. IMPRESSION: Probable benign subcentimeter lesions, as above. Additional six-month follow-up ultrasound at the magaly e of bilateral recommend mammography recommended to assure continued stability. BI-RADS CATEGORY: BI-RADS 3: Probably benign Reviewed, dictated and finalized at location . IMPRESSION: Probable benign subcentimeter lesions, as above. Additional six-month follow-up ultrasound at the time of bilateral recommend mammography recommended to assur e continued stability. BI-RADS CATEGORY: BI-RADS 3: Probably benign
== END 2025-02-14 09:47 | disposition home or self-care (01) ==
LOC: CHSIMG 09:49
PROVIDERS: PCP Family Medicine; Visit Provider Family Medicine
DX: N63.10 Unspecified lump in the right breast, unspecified quadrant (principal)
CPT/HCPCS: 76642

== ENCOUNTER 2025-08-21 08:59 | Outpatient (CLI) | payer OTHER, SELFPAY ==
--- NOTE | ~2025-08-21 | MMUS_ITS ---
EXAMINATION: MM diagnostic scott BI w fuentes, US breast RT limited INDICATION: 60-year old female; BI-RADS 3, short-term follow-up probably benign right breast findings. COMPARISON: 08/12/2024 through 09/22/2012 TECHNIQUE: Digital breast tomosynthesis True lateral, CC and MLO views of the BILATERAL breast were obtained with computer-aided detection to assist in interpretation of the study. MAMMOGRAM FINDINGS: There are scattered areas of fibroglandular density. No new suspicious mass, calcification or architectural distortion to suggest malignancy in either breast. RIGHT BREAST ULTRASOUND FINDINGS: Targeted evaluation of the area of concern was completed. 0.4 cm circumscribed hypoechoic mass at 5:00 location 1 cm from the nipple in the RIGHT breast redemonstrated is is Unchanged. This finding correlates to the previously described lesion at 4:00 position. 0.4 cm circumscribed hypoechoic mass at 6:00 location near the nipple in the RIGHT breast redemonstrated is is Unchanged. This finding correlates to the previously described lesion at 5:00 position. 0.5 cm circumscribed hypoechoic mass at 9:00, 3 cm FN redemonstrated is unchanged. IMPRESSION: Probable Benign RIGHT breast findings are unchanged. No mammographic evidence of malignancy within the left breast. RECOMMENDATION: 12 month follow-up diagnostic BILATERAL mammogram and RIGHT breast ultrasound. BI-RADS 3, PROBABLY BENIGN Reviewed, dictated and finalized at location B. MYSQL DEVELOPER IMPRESSION: Probable Benign RIGHT breast findings are unchanged. No mammographic evidence of malignancy within the left breast. RECOMMENDATION: 12 month follow-up diagnostic BILATERAL mammogram and RIGHT breast ultrasound. BI-RADS 3, PROBABLY BENIGN
== END 2025-08-21 09:00 | disposition home or self-care (01) ==
LOC: CHSIMG 08:59
PROVIDERS: PCP Family Medicine; Visit Provider Family Medicine
DX: R92.8 Other abnormal and inconclusive findings on diagnostic imaging of breast (principal)
CPT/HCPCS: 76642; 77062; 77066; G0279

== ENCOUNTER 2025-10-14 11:01 | Observation (INO) | payer OTHER, SELFPAY ==
[2025-10-14] VITALS (19 sets, daily range): BP systolic 90–159; BP diastolic 50–91; PULSE 93–142; RESP 13–24; TEMP 36.9–39.5; O2SAT 93–100; BMI 27.5; BMI 29.6
--- NOTE | ~2025-10-14 | CT_ITS ---
CT abdomen pelvis w con Clinical History: left flank/abd pain . Comparison: 10/13/2024 Technique: Axial images lung bases to symphysis pubis IV contrast information not listed in PACS Coronal, sagittal reformats CT images acquired with automatic exposure control for dose reduction DLP: 293 mGy-cm Findings: Lung bases: Clear. Visualized heart and pericardium: Unremarkable. Liver: Enlarged. Steatosis.. Tiny hypodense foci too small to characterize. Gallbladder: Unremarkable. Spleen: Unremarkable. Pancreas: Unremarkable. Adrenal glands: Unremarkable. Kidneys: Right kidney- No hydronephrosis. No renal stones. Cysts. Left kidney- hydronephrosis. Subtle areas of heterogeneous enhancement. No renal stones. 5 mm stone proximal ureter. Distal esophagus/stomach: Unremarkable. Small bowel loops: Normal caliber and wall thickness. Colon: Rectal suture line. Diverticula. Normal caliber and wall thickness. Cecum left lower quadrant. Normal appendix. Nodes: No enlarged nodes. Peritoneum: No ascites. No free air. Urinary bladder: Unremarkable. Uterus: Unremarkable. Adnexa: No masses. Bones: No acute bony abnormality. L5 spondylolysis with spondylolisthesis. Soft tissues: Unremarkable. Aorta: No aneurysm or dissection. IVC: Unremarkable. Main portal vein/SMV/splenic vein: Patent. IMPRESSION: 1. Left kidney hydronephrosis due to 5 mm stone proximal ureter. 2. Superimposed pyelonephritis not excluded. Reviewed, dictated and finalized at location R. [facility] [employer]
--- NOTE | ~2025-10-14 | XR_ITS ---
EXAMINATION: C-arm assistance for retrograde pyelogram and guidance for stent placement: DATE: 10/14/2025 INDICATION: Left hydronephrosis due to calculus TECHNIQUE: C-arm assistance was provided for retrograde pyelogram of left side and guidance for stent placement. Satisfactory placement of stent on the spot images. Fluoroscopic exposure time 46.1 seconds. COMPARISON: CT examination dated 10/14/2025. IMPRESSION: 1. As mentioned above Reviewed, dictated and finalized at location T. K DRESSER IMPRESSION: 1. As mentioned above
--- NOTE | 2025-10-14 11:16 | ECG_ITS ---
Test Date: 2025-10-14 11:20:48 Measurements Intervals [place] Rate: 105 P: 54 FL: 120 QRS: 6 QRSD: 96 T: 42 QT: 330 QTc: 438 Interpretive Statements SINUS TACHYCARDIA INCOMPLETE RIGHT BUNDLE BRANCH BLOCK CONSIDER INFERIOR INFARCT, AGE INDETERMINATE BASELINE ARTIFACT- I, II, III, AVR, AVL, AVF, V3-V6 ABNORMAL ECG No previous ECG available for comparison Electronically Signed On 10-14-2025 21:33:15 CORRECTIVE THERAPIST by Kishore Mccartney D.O.
--- NOTE | 2025-10-14 11:18 | ED_ITS ---
HPI - Abdominal Pain General Chief Complaint: Abdominal Pain Stated Complaint: abd pain, nausea Time Seen by Provider: 10/14/25 11:17 History of Present Illness HPI narrative: 60-year-old female presents emergency department with left-sided abdominal pain and flank pain since Thursday. She endorses nausea but no vomiting. Generalized anorexia. She has some increased urinary urgency but denies any dysuria. She has previous history of colectomy oophorectomy and . She states that she is passing flatus. She feels like she has had a kidney stone she has had these in the past. She denies any chest pain no lateralizing weakness or paresthesias. Related Data Home Medications ?Medication ?Instructions ?Recorded ?Confirmed ?Last Taken ?Type famotidine 20 mg tablet (Acid 20 mg PO DAILY PRN acid reflux 10/24/24 11/01/24 10/29/24 History Controller) ibuprofen 200 mg tablet 200 mg PO Q6H PRN pain 10/2411/01/24 10/25/24 History Allergies Allergy/AdvReac Type Severity Reaction Status Date / Time hydromorphone (From Dilaudid) AdvReac Vomiting Verified 10/14/25 11:09 Review of Systems 2 Review of Systems: All systems reviewed & are unremarkable except as noted in HPI and below PMFSH Past Medical History Medical History Screening for malignant neoplasm of breast Screening for malignant neoplasm of colon Screening for malignant neoplasm of cervix Abnormal mammogram Excessive cerumen in left ear canal Osteoporosis Radicular neuropathy Surgical History Surgical History History of back surgery History of partial colectomy Hx of section x4 Family History Family History Father No problems noted. Social History Social History Years smoked: 14 Smoking status: Former smoker Tobacco type: cigarettes Smoking end date: 10/24/01 Alcohol intake: current Alcohol use details: social Substance use: never Substance use type: does not use Living arrangements: with family Occupation/Education: occupation Spiritual care concerns: No Exam 2 Narrative: EXAMINATION OF ORGAN SYSTEMS/BODY AREAS: Constitutional: Vital signs per nursing GENERAL:[No acute distress, non-toxic appearing.] HEAD: Normal with no signs of head trauma. EYES: EOMI, conjunctiva normal ENT: Hearing grossly intact LUNGS: Nonlabored breathing. HEART: [Regular rate and rhythm] Regular rate rhythm 2+ radial pulses ABD: [Soft], [nontender to palpation] patient has reproducible left flank tenderness no overlying skin changes no rash. The abdomen is soft not any rebound or guarding. EXT: Normal range of motion SKIN: [No rashes or lesions.] NEURO: [Alert. No gross focal sensory or strength deficits.] PSYCH: Normal affect Course Vital Signs Vital signs: Vital Signs Temperature 36.9 C 10/14/25 11:02 Pulse Rate 118 H 10/14/25 11:02 Respiratory Rate 18 10/14/25 11:02 Blood Pressure 122/65 10/14/25 11:02 Pulse Oximetry 99 10/14/25 11:02 Oxygen Delivery Room Air 10/14/25 11:02 Temperature 36.9 C 10/14/25 11:02 Pulse Rate 96 10/14/25 12:30 Respiratory Rate 13 10/14/25 12:30 Blood Pressure 121/57 L 10/14/25 12:30 Pulse Oximetry 98 10/14/25 12:30 Oxygen Delivery Room Air 10/14/25 11:02 MDM Differential Diagnosis Differential Diagnosis: 60-year-old female presents with left flank pain. The differential is renal colic versus pyelonephritis versus diverticulitis versus musculoskeletal strain verses less likely obstructive process. Will obtain IV access, the patient is quite dry on exam she is tachycardic will hydrate her with a L bolus of IV fluids antiemetics pain medications CT abdomen pelvis IV contrast urinalysis and plain for evaluation after working treatment. Results and re-evaluation Patient is found have a 5 mm obstructing infected kidney stone. I spoke with Urology was happy about consultation will come see the patient. I have given her IV Rocephin spoke with the hospitalist and the patient was otherwise admitted to the hospital in serious condition. Her tachycardia is improved after 30 cc/kg bolus of IV fluids. Lab Data 10/14/25 11:28 10/14/25 11:28 Labs: Lab Results 10/14/25 10/14/25 10/14/25 Range/Units 11:28 11:39 13:47 WBC 11.7 H (4.5-10.0) K/mm3 RBC 4.79 (4.2-5.4) M/mm3 Hgb 14.1 (12.0-15.0) g/dL Hct 40.9 (37.0-47.0) % MCV 85.4 (80-100) fl MCH 29.4 (26-34) pg MCHC 34.5 (32-36) g/dl RDW 12.0 (11.5-14.5) % Plt Count 310 (150-375) k/mm3 MPV 9.1 (7.4-10.4) fl Immature Gran % (Auto) 0.4 (0-0.5) % Neut % (Auto) 81.0 H (45.5-73.1) % Lymph % (Auto) 8.3 L (18.3-44.2) % [place] % (Auto) 9.9 H (2.6-8.5) % Eos % (Auto) 0.1 (0-4.4) % Baso % (Auto) 0.3 (0.2-1.2) % Lymph # (Auto) 0.97 (0.9-3.2) K/mm3 [place] # (Auto) 1.2 H (0.1-0.6) K/mm3 Eos # (Auto) 0.0 (0-0.3) K/mm3 Baso # (Auto) 0.0 (0.0-0.1) K/mm3 Abs Immat Gran (auto) 0.05 H (0.00-0.031) K/mm3 Absolute Neuts (auto) 9.4 H (1.3-6.7) K/mm3 Absolute Nucleated RBC 0.000 (0.0-0.012) K/mm3 Nucleated RBC % 0.0 (0.0-0.2) % Sodium 135 L (137-145) mmol/L Potassium 3.1 L (3.4-5.0) mmol/L Chloride 104 (98-107) mmol/L Carbon Dioxide 23 (22-30) mmol/L Anion Gap 8 (4-12) mmol/L BUN 11 (7-17) mg/dL Creatinine 0.71 (0.7-1.0) mg/dL Estim Creat Clear Calc Not Reportable Estimated GFR > 60 (59 - ) Glucose 118 H (65-110) mg/dL Calcium 9.7 (8.4-10.2) mg/dL Total Bilirubin 0.9 (0.2-1.3) mg/dL AST 26 (14-36) U/L ALT 21 (6-35) U/L Alkaline Phosphatase 78 (38-126) U/L Total Protein 7.4 (6.3-8.2) g/dL Albumin 4.0 (3.5-5.1) g/dL Lipase 49 (23-300) U/L Urine Color Yellow (Yellow) Urine Appearance Cloudy H (Clear) Urine pH 5.0 (5.0-9.0) Ur Specific [place] > 1.045 H (1.001-1.035) Urine Protein 1+ H (Negative) mg/dL Urine Glucose (UA) Negative (Negative) mg/dL Urine Ketones 1+ H (Negative) mg/dL Ur Blood (Man) 2+ H (Negative) Urine Nitrate Positive H (Negative) Urine Bilirubin Negative (Negative) Urine Urobilinogen 0.2 (<2.0) mg/dL Add Ur Microanalysis Reviewed Leukocyte Esterase Rfl 2+ H (Negative) DEBORAH/UL Urine RBC 11-20 H (0-2) /hpf Urine WBC >100 H (0-3) /hpf Ur Squamous Epith Cells Occasional (Few) /hpf Urine Bacteria 4+ H /hpf Urine Casts 0-2 Influenza A (RT-PCR) Negative (Negative) Influenza B (RT-PCR) Negative (Negative) RSV (RT-PCR) Negative (Negative) SARS-CoV-2 RNA (RT-PCR) Negative (Negative) Imaging Data Radiologist's impression: ITS Impressions Abdomen/Pelvis CT 10/14/25 12:56 IMPRESSION: 1. Left kidney hydronephrosis due to 5 mm stone proximal ureter. 2. Superimposed pyelonephritis not excluded. Critical Care Time Critical Care Time Critical Care Time: Yes Indication: sepsis Initial evaluation, discuss w/ involved parties, attempting to gather old records: 10 minutes Documenting medical record: 10 minutes Review of results (EKG's, labs, imaging): 10 minutes Serial repeat bedside evaluation: 10 minutes Discussing case with multiple memebers of the care team and consultants: 5 minutes Total Critical Care Time: 45 Discharge Plan Discharge Clinical Impression: Kidney stone, Sepsis, UTI (urinary tract infection) Patient Disposition: Still a Patient Condition: Serious Instructions: Antibiotic Form Patient Language: Wolof Prescriptions: No Action rizatriptan [Maxalt] 10 mg tablet 10 mg PO Q2-4H PRN (Reason: migraine headache) Qty: 9 0RF Rx Instructions: PRN may repeat in 2 hours. No more than 3 doses per day. hydrocodone-acetaminophen 5-325 mg tablet 1 tablet PO Q6H PRN (Reason: pain) Qty: 15 0RF tamsulosin [Flomax] 0.4 mg capsule 0.4 mg PO DAILY Qty: 14 0RF ondansetron 4 mg tablet,disintegrating 4 mg PO Q8H PRN (Reason: nausea and vomiting) Qty: 15 0RF famotidine [Acid Controller] 20 mg tablet 20 mg PO DAILY PRN (Reason: acid reflux) ibuprofen 200 mg tablet 200 mg PO Q6H PRN (Reason: pain) oxybutynin chloride 5 mg tablet 5 mg PO BID PRN (Reason: bladder spasms) Qty: 30 0RF Rx Instructions: Take as needed for bladder spasms nitrofurantoin monohyd/m-cryst [Macrobid] 100 mg capsule 100 mg PO Q12H 3 Days Qty: 6 0RF Rx Instructions: must administer with a meal/food Follow-up/Referrals: Jalen Oviedo DO [Primary Care Provider, Family Practice]
[2025-10-14 11:35] LABS: Hematocrit 40.9 % (37.0-47.0); Hemoglobin 14.1 g/dL (12.0-15.0); Immature Granulocyte Percent A 0.4 % (0-0.5); Lymphocytes Absolute Auto 0.97 K/mm3 (0.9-3.2); Mean Corpuscular HGB Conc 34.5 g/dl (32-36); Mean Corpuscular Hemoglobin 29.4 pg (26-34); Mean Corpuscular Volume 85.4 fl (80-100); Nucleated Red Blood Cells Absolute Auto 0.000 K/mm3 (0.0-0.012); Nucleated Red Blood Cells Perc 0.0 % (0.0-0.2); Platelet Count Result 310 k/mm3 (150-375); Red Blood Count 4.79 M/mm3 (4.2-5.4); White Blood Count 11.7 K/mm3 (4.5-10.0)
[2025-10-14 11:49] LABS: Alanine Aminotransferase 21 U/L (6-35); Albumin Level 4.0 g/dL (3.5-5.1); Alkaline Phosphatase 78 U/L (38-126); Anion Gap 8 mmol/L (4-12); Aspartate Amino Transferase 26 U/L (14-36); Bilirubin,Total 0.9 mg/dL (0.2-1.3); Blood Urea Nitrogen 11 mg/dL (7-17); Calcium 9.7 mg/dL (8.4-10.2); Carbon Dioxide 23 mmol/L (22-30); Chloride 104 mmol/L (98-107); Estimated Glomerular Filt Rate > 60; Glucose 118 mg/dL (65-110); Lipase 49 U/L (23-300); Potassium 3.1 mmol/L (3.4-5.0); Sodium 135 mmol/L (137-145); Total Protein 7.4 g/dL (6.3-8.2)
[2025-10-14 12:18] LABS: Influenza A QL RT-PCR Negative (Negative); Influenza B QL RT-PCR Negative (Negative); RSV RNA, RT-PCR Negative (Negative); SARS-CoV-2 RNA PCR Negative (Negative)
[2025-10-14] MEDS: KETOROLAC 30 MG/ML VIAL (*BKC) IV PUSH (12:49)
[2025-10-14] MEDS: SODIUM CHLORIDE 0.9% IV 1,000 ML 999 ML IV CONT (12:49)
[2025-10-14] MEDS: ONDANSETRON INJ 4 MG/2 ML VIAL IV PUSH ×2 (12:49→17:47)
[2025-10-14 14:14] LABS: Add Urine Microscopic? YES; Appearance Urine Cloudy (Clear); Glucose Urine UA Negative (Negative); Leukocyte Esterase Ur 2+ LEU/UL (Negative); Need Manual Microscopic Reviewed; Nitrate Urine Positive (Negative); Non Pathogenic Casts 0-2; Specific Grav Ur > 1.045 (1.001-1.035)
--- NOTE | 2025-10-14 15:38 | WPDURCON ---
Assessment and Plan Assessment and plan (1) UTI (urinary tract infection): Code(s): N39.0 - Urinary tract infection, site not specified Status: Acute (2) Sepsis: Code(s): A41.9 - Sepsis, unspecified organism Status: Acute (3) Kidney stone: Code(s): N20.0 - Calculus of kidney Status: Acute Assessment and Plan: infected obstructing stone plan for cysto+rpg + left stent. risks, benefits, alternatives, nature of stent, possible complications reviewed, reviewed how stent is placed and the fact we will not treat the stone until after infection has cleared. Reviewed risks including but not limited to bleeding, infection trauma/to structures, stricture disease ureteral injury, inability to place stent and need for PCN by IR, additional reviewed anesthesia and positioning complications of LA, DVT, PE, stroke, and disability. She verbalized understanding and is agreeable to proceed, all? answered Pt understands the need for prompt followup for definitive stone management and if she fails to followup the stent may cause irreversible kidney damage and life threatening harm. she voiced understanding and has had prior stents Urology Consult Note HPI Date Seen: 10/14/25 Requesting Physician: Maeve Perez MD Primary Care Provider: Jalen Oviedo DO Consult Narrative Narrative: Juliet Dowd is a 60 year old female prior hx of stones ( Dr Maria), who presents to ED with 2-3 day hx of left sided flank pain with associated N/ and chills, no fevers, no vomiting + poor PO intake. She has a hx of right stones treated with stents and URS/HLL. CT shows 5 mm left ureter stone, + tachy, + elevated WBC, ua with leuks and nitrite+. Had some ibuprofen and water around 11 am, no meals recently. Review of Systems Constitutional: Constitutional: Reports as per HPI, Reports body ache(s) and Reports chills Eyes: Eyes: Reports as per HPI and Reports no additional eye complaints ENT: Reports as per HPI, Reports Normal hearing present and Denies dysphagia Cardiovascular: Cardiovascular: Reports no additional cardiovascular complaints, Denies chest pain and Denies diaphoresis Respiratory: Respiratory: Reports no additional respiratory complaints Gastrointestinal: Gastrointestinal: Reports as per HPI Genitourinary: Genitourinary: Reports no additional female genitourinary complaints and Reports as per HPI Musculoskeletal: Musculoskeletal: Reports no additional musculoskeletal complaints Integumentary/Breasts: Skin/Breast: Reports system reviewed and no additional complaints, except as docu Neurologic: Reports system reviewed and no additional complaints, except as documented [facility] Past Medical History Medical History Screening for malignant neoplasm of breast Screening for malignant neoplasm of colon Screening for malignant neoplasm of cervix Abnormal mammogram Excessive cerumen in left ear canal Osteoporosis Radicular neuropathy Surgical History Surgical History History of back surgery History of partial colectomy Hx of section x4 Family History Family History Father No problems noted. Social History Social History Years smoked: 14 Smoking status: Former smoker Tobacco type: cigarettes Smoking end date: 10/24/01 Alcohol intake: current Alcohol use details: social Substance use: never Substance use type: does not use Living arrangements: with family Occupation/Education: occupation Spiritual care concerns: No Meds Home Medications and Allergies Home Medications ?Medication ?Instructions ?Recorded ?Confirmed ?Type rizatriptan 10 mg tablet (Maxalt) 10 mg PO Q2-4H PRN migraine 09/04/23 10/24/24 Rx headache #9 tabs hydrocodone 5 mg-acetaminophen 325 1 tablet PO Q6H PRN pain #15 tabs 10/13/24 11/01/24 Rx mg tablet ondansetron 4 mg disintegrating 4 mg PO Q8H PRN nausea and 10/13/24 11/01/24 Rx tablet vomiting #15 tabs tamsulosin 0.4 mg capsule (Flomax) 0.4 mg PO DAILY #14 caps 10/13/24 11/01/24 Rx famotidine 20 mg tablet (Acid 20 mg PO DAILY PRN acid reflux 10/24/24 11/01/24 History Controller) ibuprofen 200 mg tablet 200 mg PO Q6H PRN pain 10/24/24 11/01/24 History nitrofurantoin 100 mg PO Q12H 3 days #6 caps 11/01/24 Rx monohydrate/macrocrystals 100 mg capsule (Macrobid) oxybutynin chloride 5 mg tablet 5 mg PO BID PRN bladder spasms #30 11/01/24 Rx tabs Allergies Allergy/AdvReac Type Severity Reaction Status Date / Time hydromorphone (From Dilaudid) AdvReac Vomiting Verified 10/14/25 11:09 Vital Signs Vital Signs - 24 hr 10/14/25 11:02 10/14/25 11:17 10/14/25 11:30 Temperature 36.9 C Pulse Rate 118 H 113 H 107 H Respiratory Rate 18 16 19 Blood Pressure 122/65 122/62 126/68 Pulse Oximetry 99 98 98 Oxygen Delivery Room Air 10/14/25 12:00 10/14/25 12:30 Temperature Pulse Rate 101 H 96 Respiratory Rate 21 H 13 Blood Pressure 119/66 121/57 L Pulse Oximetry 97 98 Oxygen Delivery Exam Const: General: no acute distress and uncomfortable HENMT: Mouth: Yes moist mucous membranes abnormal Eyes: General: appearance normal, both eyes and all related structures Neck: Neck: supple Resp: Effort & Inspection: normal respiratory effort Cardio: Rate: tachycardic GI: GI Palp: Yes Soft to palpation, No Tenderness to palpation present (GI) and No Guarding due to palpation present (GI) Neuro: Speech: normal speech Extrem: General: normal to inspection Results Labs 10/14/25 11:28 10/14/25 11:28 Labs: Short CBC 10/14/25 Range/Units 11:28 WBC 11.7 H (4.5-10.0) K/mm3 Hgb 14.1 (12.0-15.0) g/dL Hct 40.9 (37.0-47.0) % Plt Count 310 (150-375) k/mm3 [facility] 10/14/25 11:28 Sodium 135 L Potassium 3.1 L Chloride 104 Carbon Dioxide 23 BUN 11 Creatinine 0.71 Glucose 118 H Calcium 9.7 Liver Function 10/14/25 Range/Units 11:28 Total Bilirubin 0.9 (0.2-1.3) mg/dL AST 26 (14-36) U/L ALT 21 (6-35) U/L Alkaline Phosphatase 78 (38-126) U/L Albumin 4.0 (3.5-5.1) g/dL Urine 10/14/25 Range/Units 13:47 Urine Color Yellow (Yellow) Urine Appearance Cloudy H (Clear) Urine pH 5.0 (5.0-9.0) Ur Specific [place] > 1.045 H (1.001-1.035) Urine Protein 1+ H (Negative) mg/dL Urine Glucose (UA) Negative (Negative) mg/dL Imaging My impression: left 5 mm ureter stone
[2025-10-14] MEDS: cefTRIAXone 2 GM in SODIUM CHLORIDE 0.9% IV 100 ML 200 ML IVPB (15:40)
--- NOTE | 2025-10-14 15:48 | WPDHPUPDATE1 ---
History and Physical Update Update Date/Time: 10/14/25 15:48 History and Physical has been reviewed, including an updated exam of the patient. There are NO changes in the patient's condition. Risks, benefits, and alternatives have been discussed and questions answered. Patient agrees to proceed with procedure.
--- NOTE | 2025-10-14 16:03 | P.PNAN_ITS ---
Anes - Initial Pre Proc Eval Procedure: Operation Date: 10/14/25 15:45 Proposed Procedures p Cysto, RPG, Stone Ext, Stent Placement - Davion Vargas MD Date/Time: 10/14/25 16:03 Surgeon: Maeve Perez MD Pre Op Diagnosis: Obstructed infected kidney stone Patient Data Age: 60 Gender: F Height: 1.55 m Weight: Last Vital Signs Temp 103.1 F H 10/14/25 15:40 Pulse 100 10/14/25 15:40 Resp 14 10/14/25 15:40 BP 143/74 H 10/14/25 15:40 Pulse Ox 100 10/14/25 15:40 O2 Del Method Room Air 10/14/25 11:02 Allergies Allergy/AdvReac Type Severity Reaction Status Date / Time hydromorphone (From Dilaudid) AdvReac Vomiting Verified 10/14/25 11:09 Home Medications ?Medication ?Instructions ?Recorded ?Confirmed ?Type rizatriptan 10 mg tablet (Maxalt) 10 mg PO Q2-4H PRN m igraine 09/04/23 10/24/24 Rx headache #9 tabs hydrocodone 5 mg-acetaminophen 325 1 tablet PO Q6H PRN pain #15 tabs 10/13/24 11/01/24 Rx mg tablet ondansetron 4 mg disintegrating 4 mg PO Q8H PRN nausea and 10/13/24 11/01/24 Rx tablet vomiting #15 tabs tamsulosin 0.4 mg capsule (Flomax) 0.4 mg PO DAILY #14 caps 10/13/24 11/01/24 Rx famotidine 20 mg tablet (Acid 20 mg PO DAILY PRN acid reflux 10/24/24 11/01/24 History Controller) ibuprofen 200 mg tablet 200 mg PO Q6H PRN pain 10/2411/01/24 History nitrofurantoin 100 mg PO Q12H 3 days #6 cap s 11/01/24 Rx monohydrate/macrocrystals 100 mg capsule (Macrobid) oxybutynin chloride 5 mg tablet 5 mg PO BID PRN bladde r spasms #30 11/01/24 Rx tabs Laboratory Tests 10/14/25 10/14/25 10/14/25 11:28 11:39 13:47 WBC 11.7 H K/mm3 (4.5-10.0) RBC 4.79 M/mm3 (4.2-5.4) Hgb 14.1 g/dL (12.0-15.0) Hct 40.9 % (37.0-47.0) MCV 85.4 fl (80-100) MCH 29.4 pg (26-34) MCHC 34.5 g/dl (32-36) RDW 12.0 % (11.5-14.5) Plt Count 310 k/mm3 (150-375) MPV 9.1 fl (7.4-10.4) Immature Gran % (Auto) 0.4 % (0-0.5) Neut % (Auto) 81.0 H % (45.5-73.1) Lymph % (Auto) 8.3 L % (18.3-44.2) [place] % (Auto) 9.9 H % (2.6-8.5) Eos % (Auto) 0.1 % (0-4.4) Baso % (Auto) 0.3 % (0.2-1.2) Lymph # (Auto) 0.97 K/mm3 (0.9-3.2) [place] # (Auto) 1.2 H K/mm3 (0.1-0.6) Eos # (Auto) 0.0 K/mm3 (0-0.3) Baso # (Auto) 0.0 K/mm3 (0.0-0.1) Abs Immat Gran (auto) 0.05 H K/mm3 (0.00-0.031) Absolute Neuts (auto) 9.4 H K/mm3 (1.3-6.7) Absolute Nucleated RBC 0.000 K/mm3 (0.0-0.012) Nucleated RBC % 0.0 % (0.0-0.2) Sodium 135 L mmol/L (137-145) Potassium 3.1 L mmol/L (3.4-5.0) Chloride 104 mmol/L (98-107) Carbon Dioxide 23 mmol/L (22-30) Anion Gap 8 mmol/L (4-12) BUN 11 mg/dL (7-17) Creatinine 0.71 mg/dL (0.7-1.0) Estim Creat Clear Calc Not Reportable Estimated GFR > 60 (59 - ) Glucose 118 H mg/dL (65-110) Calcium 9.7 mg/dL (8.4-10.2) Total Bilirubin 0.9 mg/dL (0.2-1.3) AST 26 U/L (14-36) ALT 21 U/L (6-35) Alkaline Phosphatase 78 U/L (38-126) Total Protein 7.4 g/dL (6.3-8.2) Albumin 4.0 g/dL (3.5-5.1) Lipase 49 U/L (23-300) Urine Color Yellow (Yellow) Urine Appearance Cloudy H (Clear) Urine pH 5.0 (5.0-9.0) Ur Specific [facility] > 1.045 H (1.001-1.035) Urine Protein 1+ H mg/dL (Negative) Urine Glucose (UA) Negative mg/dL (Negative) Urine Ketones 1+ H mg/dL (Negative) Ur Blood (Man) 2+ H (Negative) Urine Nitrate Positive H (Negative) Urine Bilirubin Negative (Negative) Urine Urobilinogen 0.2 mg/dL (<2.0) Add Ur Microanalysis Reviewed Leukocyte Esterase Rfl 2+ H DEBORAH/UL (Negative) Urine RBC 11-20 H /hpf (0-2) Urine WBC >100 H /hpf (0-3) Ur Squamous Epith Cells Occasional /hpf (Few) Urine Bacteria 4+ H /hpf Urine Casts 0-2 Influenza A (RT-PCR) Negative (Negative) Influenza B (RT-PCR) Negative (Negative) RSV (RT-PCR) Negative (Negative) SARS-CoV-2 RNA (RT-PCR) Negative (Negative) Patient hx anesthesia problems: none Family hx anesthesia problems: none Results Review: All pre-operative results and documents have been reviewed as part of the pre- operative evaluation. [facility] Past Medical History Medical History Screening for malignant neoplasm of breast Screening for malignant neoplasm of colon Screening for malignant neoplasm of cervix Abnormal mammogram Excessive cerumen in left ear canal Osteoporosis Radicular neuropathy Surgical History Surgical History History of back surgery History of partial colectomy Hx of section x4 Family History Family History Father No problems noted. Social History Social History Years smoked: 14 Smoking status: Former smoker Tobacco type: cigarettes Smoking end date: 10/24/01 Alcohol intake: current Alcohol use details: social Substance use: never Substance use type: does not use Living arrangements: with family Occupation/Education: occupation Spiritual care concerns: No Anes - Eval Final PreProcedure Day of Procedure 10/14/25 16:03 Patient weight: overweight Lungs: normal air movement Airway: Mallampati scale class II Neurological: alert and oriented Last oral intake: >/= 8 hours ASA classification: II Emergent: yes Anesthetic plan: proceed Anesthesia type and monitoring: general ETT and standard monitoring Results Review: All pre-operative results and documents have been reviewed as part of the pre- operative evaluation. Ex smoker, borderline hyperlipidemia, now w infected ureteral stone, febrile, pt w N/V in preop area. Informed Consent: The patient's anesthetic plan and its attendant risks and benefits were discussed with the patient/family/POA. Questions were solicited and answers provided to the satisfaction of the patient/family/POA.
--- NOTE | 2025-10-14 16:27 | W.PM.PROC2 ---
Procedure Note - Detailed Date of Procedure 10/14/25 Pre-op Diagnosis Obstructed infected kidney stone Post-op Diagnosis Same Procedure Performed cystoscopy, left retrograde pyelogram, left ureter stent placement, Surgeon Davion Vargas MD Anesthesia General Indications obstructing infected ureter stone Description of Procedure Description of procedure: Pt was brought back to the operating room, received a general anesthesia via GETA, was prepped and draped in the dorsal lithotomy position with Betadine scrub to the genitalia. SCD's were on and functional for DVT ppx. Care was taken to not hyperflex or hyperextend and extremity , all bony prominences were thouroghly padded. She received a preoperative dose of rocephin for ppx. After appropriate timeout a 22 fr cystoscope was inserted into the urethra, the urthera was grossly normal, bladder mucosa was normal with cloudy urine and evidence of cystytis, she has single orthotopic ureteral orifices effluxing clear yellow urine, Sensor wire was placed under fluoroscopy up the left uo, stone was not easily visible in mid ureter, I was able to navigated the sensor wire past this into the upper pole. 5 Fr open ended catheter placed over the wire and gentle RPG was performed to outline collecting system, 6Fr x24cm double J length stent was then deployed, good curl was seen fluoroscopically in the kidney and both fluoroscopically and endoscopically in the bladder, bladder was drained, all instruments and wires removed, I elected to place a 14 fr Baer for maximum urinary drainage given infected, obstructing stone. pt was awoken and transferred to recovery in stable condition. No family to speak with. Implants left 6x24 cm double J stent Pathology None sent Complications No immediate complications Condition Stable
[2025-10-14] MEDS: LACTATED RINGERS 1,000 ML 30 ML IV CONT ×2 (16:35→17:43)
[2025-10-14] MEDS: fentaNYL CITRATE INJ (*CRX) 100 MCG/2 ML VIAL 25 MCG IV PUSH (17:10)
[2025-10-14] MEDS: ACETAMINOPHEN 500 MG TABLET 1000 MG PO (17:32)
[2025-10-14] MEDS: DICYCLOMINE HCL 10 MG CAPSULE 20 MG PO (20:46)
--- NOTE | 2025-10-14 22:24 | P.HP_ITS ---
H&P: HPI History of Present Illness Date/Time: 10/14/251844 Chief Complaint: Abdominal and flank pain Narrative: 60-year-old female with a past medical history of osteoporosis, right kidney stone presents to the ED on 10/14/2025 with complaints of left-sided abdomen and flank pain onset 4 days ago. She endorses nausea but has had no episodes of emesis. She noticed her urine has been cloudy or for the past 4 days as well. She states she feels like she has had fevers at home and has had generalized feeling of unwell. Endorses poor p.o. intake. Denies chest pain, shortness of breath. Does have history of abdominal surgery but has had no change in bowel habits. Patient had a right kidney stone this time last year and feels that this is another kidney stone. ED course: Initial vital signs 122/65, HR 118, respirations 18, afebrile and 99% on room air. Lab significant for leukocytosis with WBC 11.7, sodium 135, potassium 3.1. Viral panel negative. UA cloudy with specific gravity > 1.045, 1+ protein, 1+ ketones, 2+ blood, positive nitrate, 2+ leukocyte esterase, 11-20 RBC, >100 WBC, 4+ bacteria. EKG reads sinus tach with incomplete right bundle branch block. CT abdomen pelvis reads left kidney hydronephrosis due to 5 mm stone in the proximal ureter. Superimposed pyelonephritis is not excluded. Patient taken to the OR by Dr. Vargas on 10/14 and underwent cystoscopy, left retrograde pyelogram, left ureter stent placement. A torres was placed in the OR. Review of Systems Review of Systems: All systems reviewed & are unremarkable except as noted in HPI and below PMFSH Past Medical History Medical History Screening for malignant neoplasm of breast Screening for malignant neoplasm of colon Screening for malignant neoplasm of cervix Abnormal mammogram Excessive cerumen in left ear canal Osteoporosis Radicular neuropathy Surgical History Surgical History History of back surgery History of partial colectomy Hx of section x4 Family History Family History (Updated 10/14/25 @ 20:58 by Jason Cosby RN) Father No problems noted. Sibling Cancer Cerebrovascular accident Father Cancer Mother Diabetes mellitus Social History Social History Years smoked: 14 Smoking status: Former smoker Tobacco type: cigarettes Smoking end date: 10/24/01 Alcohol intake: current Drinks per week: 1 Alcohol use details: social Substance use: never Substance use type: does not use Lack of Transportation: No Lack of Food: Never True Current Housing: I Have Housing Concerned About Future Housing: No Difficulty Paying Gas/Electric Bills: No Difficulty Paying for Meds: No Currently Unemployed: No Education: High School Diploma/GED Difficulty w/ Childcare or Family Care: No Living arrangements: with family Occupation/Education: occupation Spiritual care concerns: Yes Meds Home Medications and Allergies Home Medications ?Medication ?Instructions ?Recorded ?Confirmed ?Type No Home Medications 10/14/25 10/14/25 H istory Allergies Allergy/AdvReac Type Severity Reaction Status Date / Time hydromorphone (From Dilaudid) AdvReac Vomiting Verified 10/14/25 20:52 Vital Signs Vital Signs - 24 hr 10/14/25 11:02 10/14/25 11:17 10/14/25 11:30 Temperature 98.5 F Pulse Rate 118 H 113 H 107 H Respiratory Rate 18 16 19 Blood Pressure 122/65 122/62 126/68 Pulse Oximetry 99 98 98 Oxygen Delivery Room Air Oxygen Flow Rate 10/14/25 12:00 10/14/25 12:30 10/14/25 13:30 Temperature Pulse Rate 101 H 96 100 Respiratory Rate 21 H 13 16 Blood Pressure 119/66 121/57 L 123/67 Pulse Oximetry 97 98 100 Oxygen Delivery Oxygen Flow Rate 10/14/25 14:30 10/14/25 15:40 10/14/25 16:35 Temperature 103.1 F H 99.4 F Pulse Rate 93 100 112 H Respiratory Rate 16 14 16 Blood Pressure 128/58 L 143/74 H 121/60 Pulse Oximetry 100 100 100 Oxygen Delivery Simple Face Mask Oxygen Flow Rate 10 10/14/25 16:50 10/14/25 17:00 10/14/25 17:05 Temperature 101 F H Pulse Rate 110 H 142 H Respiratory Rate 15 23 H Blood Pressure 116/59 L 159/90 H Pulse Oximetry 100 99 Oxygen Delivery Simple Face Mask Nasal Cannula Oxygen Flow Rate 10 2 10/14/25 17:20 10/14/25 17:35 10/14/25 17:50 Temperature Pulse Rate 120 H 122 H 120 H Respiratory Rate 24 H 22 H 21 H Blood Pressure 147/76 H 120/62 103/51 L Pulse Oximetry 99 94 98 Oxygen Delivery Nasal Cannula Nasal Cannula Nasal Cannula Oxygen Flow Rate 2 2 2 10/14/25 18:05 10/14/25 18:23 10/14/25 18:44 Temperature 99.6 F Pulse Rate 115 H 112 H 108 H Respiratory Rate 24 H 22 H 19 Blood Pressure 109/91 H 103/51 L 99/51 L Pulse Oximetry 93 96 96 Oxygen Delivery Room Air Nasal Cannula Oxygen Flow Rate 2 10/14/25 21:40 Temperature 98.5 F Pulse Rate 93 Respiratory Rate 18 Blood Pressure 90/50 L Pulse Oximetry 95 Oxygen Delivery Oxygen Flow Rate Exam Narrative: GENERAL: non-toxic appearing, in no acute distress. HEAD: Normocephalic, atraumatic. EYES: PERRLA. Conjunctivae clear. NOSE: Normal no drainage. THROAT: Pharynx clear, no exudate. NECK: ?Trachea midline. No adenopathy, no masses. RESPIRATORY: Airway patent, respirations nonlabored. CTA. CARDIOVASCULAR: Regular rate and rhythm BREASTS: ?Defer GASTROINTESTINAL: ?Abdomen is soft and nontender. ?No organomegaly. ?Bowel sounds normal in all quadrants. GENITOURINARY: ?Torres in place with cloudy yellow urine MUSCULOSKELETAL: Moves all extremities. No gross deformities. ? SKIN: Warm, dry, normal color. NEURO: A&O X4. Speech clear PSYCHIATRIC: Normal interaction Results Labs Labs: Short CBC 10/14/25 Range/Units 11:28 WBC 11.7 H (4.5-10.0) K/mm3 Hgb 14.1 (12.0-15.0) g/dL Hct 40.9 (37.0-47.0) % Plt Count 310 (150-375) k/mm3 [facility] 10/14/25 11:28 Sodium 135 L Potassium 3.1 L Chloride 104 Carbon Dioxide 23 BUN 11 Creatinine 0.71 Glucose 118 H Calcium 9.7 Liver Function 10/14/25 Range/Units 11:28 Total Bilirubin 0.9 (0.2-1.3) mg/dL AST 26 (14-36) U/L ALT 21 (6-35) U/L Alkaline Phosphatase 78 (38-126) U/L Albumin 4.0 (3.5-5.1) g/dL Urine 10/14/25 Range/Units 13:47 Urine Color Yellow (Yellow) Urine Appearance Cloudy H (Clear) Urine pH 5.0 (5.0-9.0) Ur Specific [place] > 1.045 H (1.001-1.035) Urine Protein 1+ H (Negative) mg/dL Urine Glucose (UA) Negative (Negative) mg/dL Quality VTE Prophylaxis VTE prophylaxis: mechanical ordered Assessment and Plan Assessment and plan (1) UTI (urinary tract infection): Qualifiers: Urinary tract infection type: site unspecified Hematuria presence: without hematuria Qualified Code(s): N39.0 - Urinary tract infection, site not specified Code(s): N39.0 - Urinary tract infection, site not specified Status: Acute Assessment and Plan: UA cloudy with specific gravity > 1.045, 1+ protein, 1+ ketones, 2+ blood, positive nitrate, 2+ leukocyte esterase, 11-20 RBC, >100 WBC, 4+ bacteria. - UC pending - No previous micro to review - started on Ceftriaxone on 10/14 - Trend WBC - Monitor for fever (2) Kidney stone: Code(s): N20.0 - Calculus of kidney Status: Acute Assessment and Plan: CT abdomen pelvis reads left kidney hydronephrosis due to 5 mm stone in the proximal ureter. Superimposed pyelonephritis is not excluded. - underwent cystoscopy, left retrograde pyelogram, left ureter stent placement on 10/14 - Continue Torres per Urology - Hydrocodone and acetaminophen p.r.n. Prior Studies I have reviewed the following patient records and this information was taken into consideration when formulating the assessment and plan.: previous labs, previous ER visits, previous hospitalizations and previous clinic visits Time Spent with Patient Time with patient: 45 - 74 minutes Hospitalist MIPS Advance Care Plan I have confirmed that the patient's Advanced Care Plan is present, code status is documented, or surrogate decision maker is listed in patient medical record.: Yes Medication Reconciliation I have utilized all available resources to obtain, update and review the patients current medications (includes all prescriptions, OTC, herbals, cannabis, and nutritional supplements).: Yes
[2025-10-15 00:17] VITALS: BP 97/44; PULSE 84; RESP 12; TEMP 36.3; O2SAT 98
[2025-10-15] MEDS: DICYCLOMINE HCL 10 MG CAPSULE 20 MG PO (03:50)
[2025-10-15 06:07] VITALS: BP 105/43; PULSE 85; RESP 14; TEMP 36.6; O2SAT 100
[2025-10-15 07:01] LABS: Hematocrit 34.8 % (37.0-47.0); Hemoglobin 11.6 g/dL (12.0-15.0); Mean Corpuscular HGB Conc 33.3 g/dl (32-36); Mean Corpuscular Hemoglobin 29.1 pg (26-34); Mean Corpuscular Volume 87.4 fl (80-100); Platelet Count Result 249 k/mm3 (150-375); Red Blood Count 3.98 M/mm3 (4.2-5.4); White Blood Count 14.9 K/mm3 (4.5-10.0)
[2025-10-15 07:27] LABS: Anion Gap 5 mmol/L (4-12); Blood Urea Nitrogen 11 mg/dL (7-17); Calcium 8.6 mg/dL (8.4-10.2); Carbon Dioxide 27 mmol/L (22-30); Chloride 106 mmol/L (98-107); Estimated CRCL calculation 60 ml/min; Estimated Glomerular Filt Rate > 60; Glucose 102 mg/dL (65-110); Potassium 2.9 mmol/L (3.4-5.0); Sodium 138 mmol/L (137-145)
--- NOTE | 2025-10-15 07:35 | P.PNIM_ITS ---
Assessment and Plan Assessment and Plan (1) Sepsis: Code(s): A41.9 - Sepsis, unspecified organism Status: Acute Assessment and Plan: Meets SIRS criteria: febrile, leukocytosis, tachycardia, tachypnea - lactic acid and blood cultures not obtained on admission, unfortunately patient received a dose of antibiotics prior to cultures. Will order blood cultures on 10/15, pending. - suspected source: infected stone - UA concerning for infection - CT abdomen pelvis reads left kidney hydronephrosis due to 5 mm stone in the proximal ureter, superimposed pyelonephritis is not excluded. - See plan below Last fever 101F 10/14 at 1700. Tachycardia and tachypnea resolved. Asymptomatic hypotension, blood pressures currently stable. Closely monitor. (2) UTI (urinary tract infection): Qualifiers: Hematuria presence: without hematuria Urinary tract infection type: site unspecified Qualified Code(s): N39.0 - Urinary tract infection, site not specified Code(s): N39.0 - Urinary tract infection, site not specified Status: Acute Assessment and Plan: - UA cloudy with specific gravity > 1.045, 1+ protein, 1+ ketones, 2+ blood, positive nitrate, 2+ leukocyte esterase, 11-20 RBC, >100 WBC, 4+ bacteria. - UC pending - No previous micro to review - Ceftriaxone started on 10/14 (3) Kidney stone: Code(s): N20.0 - Calculus of kidney Status: Acute Assessment and Plan: Infected obstructing stone CT abdomen pelvis reads left kidney hydronephrosis due to 5 mm stone in the proximal ureter, superimposed pyelonephritis is not excluded. - analgesics: hydrocodone and acetaminophen p.r.n. - monitor I/O - monitor renal function, remains WNL - urology consult underwent cystoscopy, left retrograde pyelogram, left ureter stent placement on 10/14 continue Torres catheter for max urine drainage Medical Record Review I have reviewed the following patient records and this information was taken into consideration when formulating the assessment and plan.: previous labs Time Spent With Patient Time with patient: 25 - 35 minutes Subjective Date/time seen: 10/15/25 07:35 Interval history: 60-year-old female with a past medical history of osteoporosis and right kidney stone presents to the hospital with complaints of left-sided abdomen and flank pain. Patient is pleasant lying comfortably in bed. She endorses nausea and abdominal discomfort over the bladder but no vomiting and continues to tolerate a diet. She has no other complaints denying chest pain, palpitations, shortness a breath. Review of Systems Review of Systems: All systems reviewed & are unremarkable except as noted in HPI and below Exam Narrative: AF 85 RR 14 SPo2 100 BP 105/43 General: female in no acute respiratory distress who is nontoxic appearing, lying semi recumbent in bed. HEENT: Extraocular movement intact. Sclera clear and anicteric.No facial asymmetry. Chest: Lungs are clear to auscultation bilaterally. No wheezes or crackles. CV: Heart was regular rate and rhythm. Abd: Abdomen was soft. Mild LLQ and hypogastric discomfort with palpation, no guarding. No CVA tenderness. Nondistended. Positive bowel sounds. : torres catheter in place with pavan colored urine. Ext: No clubbing, cyanosis, or edema. DP pulses bilaterally. Neuro: Patient is alert. Speech is clear. Objective Data Vital Signs Vital Signs: Vital Signs - 24 hr 10/14/25 11:02 10/14/25 11:17 10/14/25 11:30 Temperature 98.5 F Pulse Rate 118 H 113 H 107 H Respiratory Rate 18 16 19 Blood Pressure 122/65 122/62 126/68 Pulse Oximetry 99 98 98 Oxygen Delivery Room Air Oxygen Flow Rate 10/14/25 12:00 10/14/25 12:30 10/14/25 13:30 Temperature Pulse Rate 101 H 96 100 Respiratory Rate 21 H 13 16 Blood Pressure 119/66 121/57 L 123/67 Pulse Oximetry 97 98 100 Oxygen Delivery Oxygen Flow Rate 10/14/25 14:30 10/14/25 15:40 10/14/25 16:35 Temperature 103.1 F H 99.4 F Pulse Rate 93 100 112 H Respiratory Rate 16 14 16 Blood Pressure 128/58 L 143/74 H 121/60 Pulse Oximetry 100 100 100 Oxygen Delivery Simple Face Mask Oxygen Flow Rate 10 10/14/25 16:50 10/14/25 17:00 10/14/25 17:05 Temperature 101 F H Pulse Rate 110 H 142 H Respiratory Rate 15 23 H Blood Pressure 116/59 L 159/90 H Pulse Oximetry 100 99 Oxygen Delivery Simple Face Mask Nasal Cannula Oxygen Flow Rate 10 2 10/14/25 17:20 10/14/25 17:35 10/14/25 17:50 Temperature Pulse Rate 120 H 122 H 120 H Respiratory Rate 24 H 22 H 21 H Blood Pressure 147/76 H 120/62 103/51 L Pulse Oximetry 99 94 98 Oxygen Delivery Nasal Cannula Nasal Cannula Nasal Cannula Oxygen Flow Rate 2 2 2 10/14/25 18:05 10/14/25 18:23 10/14/25 18:44 Temperature 99.6 F Pulse Rate 115 H 112 H 108 H Respiratory Rate 24 H 22 H 19 Blood Pressure 109/91 H 103/51 L 99/51 L Pulse Oximetry 93 96 96 Oxygen Delivery Room Air Nasal Cannula Oxygen Flow Rate 2 10/14/25 21:40 10/15/25 00:17 10/15/25 06:07 Temperature 98.5 F 97.4 F L 97.9 F Pulse Rate 93 84 85 Respiratory Rate 18 12 14 Blood Pressure 90/50 L 97/44 L 105/43 L Pulse Oximetry 95 98 100 Oxygen Delivery Oxygen Flow Rate Intake/Output Intake/Output: Intake & Output 10/12/25 10/13/25 10/14/25 10/15/25 23:59 23:59 23:59 23:59 Intake Total 2100 850 Output Total 350 350 Balance 1750 500 Meds/Results Medications: Active Medications Generic Name Dose Route Start Last Admin Trade Name Freq PRN Reason Stop Dose Admin Acetaminophen 650 mg 10/14/25 22:14 Acetaminophen 325 Mg Tablet PO Q6H PRN Mild Pain (1-3) or Fever Hydrocodone Bitart/Acetaminophen 1 tab 10/14/25 22:14 Hydrocodone/Acetaminophen (*Crx) 5-325 Mg Tablet PO Q6H PRN Pain Rated 4-6 Dicyclomine HCl 20 mg 10/14/25 20:36 10/15/25 03:50 Dicyclomine Hcl 10 Mg Capsule PO 20 mg QID PRN Administration Abdominal Cramping Fentanyl Citrate 25 mcg 10/14/25 15:21 10/14/25 17:10 Fentanyl Citrate Inj (*Crx) 100 Mcg/2 Ml Vial IV PUSH 25 mcg Q2M PRN Administration Pain Lactated Ringer's 1,000 mls @ 30 mls/hr 10/14/25 15:25 10/14/25 17:42 Lr - Lactated Ringers Iv IV CONT Infused .Q24H [facility]A Infusion Lactated Ringer's 1,000 mls @ 30 mls/hr 10/14/25 15:25 10/14/25 18:24 Lr - Lactated Ringers Iv IV CONT Infused .Q24H [facility] Infusion Ceftriaxone Sodium 2 gm/ 100 mls @ 200 mls/hr 10/15/25 14:00 Sodium Chloride IVPB Q24H [facility] Ondansetron HCl 4 mg 10/14/25 15:21 10/14/25 17:47 Ondansetron Inj 4 Mg/2 Ml Vial IV PUSH 4 mg ONCE PRN Administration Nausea Radiology Results: ITS Impressions Abdomen/Pelvis CT 10/14/25 12:56 IMPRESSION: 1. Left kidney hydronephrosis due to 5 mm stone proximal ureter. 2. Superimposed pyelonephritis not excluded. Retrograde Pyelogram 10/14/25 16:54 IMPRESSION: 1. As mentioned above Labs Labs: Laboratory Results - last 24 hr 10/14/25 10/14/25 10/14/25 11:28 11:39 13:47 WBC 11.7 H RBC 4.79 Hgb 14.1 Hct 40.9 MCV 85.4 MCH 29.4 MCHC 34.5 RDW 12.0 Plt Count 310 MPV 9.1 Immature Gran % (Auto) 0.4 Neut % (Auto) 81.0 H Lymph % (Auto) 8.3 L [place] % (Auto) 9.9 H Eos % (Auto) 0.1 Baso % (Auto) 0.3 Lymph # (Auto) 0.97 [place] # (Auto) 1.2 H Eos # (Auto) 0.0 Baso # (Auto) 0.0 Abs Immat Gran (auto) 0.05 H Absolute Neuts (auto) 9.4 H Absolute Nucleated RBC 0.000 Nucleated RBC % 0.0 Sodium 135 L Potassium 3.1 L Chloride 104 Carbon Dioxide 23 Anion Gap 8 BUN 11 Creatinine 0.71 Estim Creat Clear Calc Not Reportable Estimated GFR > 60 Glucose 118 H Calcium 9.7 Total Bilirubin 0.9 AST 26 ALT 21 Alkaline Phosphatase 78 Total Protein 7.4 Albumin 4.0 Lipase 49 Urine Color Yellow Urine Appearance Cloudy H Urine pH 5.0 Ur Specific [place] > 1.045 H Urine Protein 1+ H Urine Glucose (UA) Negative Urine Ketones 1+ H Ur Blood (Man) 2+ H Urine Nitrate Positive H Urine Bilirubin Negative Urine Urobilinogen 0.2 Add Ur Microanalysis Reviewed Leukocyte Esterase Rfl 2+ H Urine RBC 11-20 H Urine WBC >100 H Ur Squamous Epith Cells Occasional Urine Bacteria 4+ H Urine Casts 0-2 Influenza A (RT-PCR) Negative Influenza B (RT-PCR) Negative RSV (RT-PCR) Negative SARS-CoV-2 RNA (RT-PCR) Negative 10/15/25 06:11 WBC RBC Hgb Hct MCV MCH MCHC RDW Plt Count MPV Immature Gran % (Auto) Neut % (Auto) Lymph % (Auto) [place] % (Auto) Eos % (Auto) Baso % (Auto) Lymph # (Auto) [place] # (Auto) Eos # (Auto) Baso # (Auto) Abs Immat Gran (auto) Absolute Neuts (auto) Absolute Nucleated RBC Nucleated RBC % Sodium 138 Potassium 2.9 L Chloride 106 Carbon Dioxide 27 Anion Gap 5 BUN 11 Creatinine 0.79 Estim Creat Clear Calc 60 Estimated GFR > 60 Glucose 102 Calcium 8.6 Total Bilirubin AST ALT Alkaline Phosphatase Total Protein Albumin Lipase Urine Color Urine Appearance Urine pH Ur Specific [place] Urine Protein Urine Glucose (UA) Urine Ketones Ur Blood (Man) Urine Nitrate Urine Bilirubin Urine Urobilinogen Add Ur Microanalysis Leukocyte Esterase Rfl Urine RBC Urine WBC Ur Squamous Epith Cells Urine Bacteria Urine Casts Influenza A (RT-PCR) Influenza B (RT-PCR) RSV (RT-PCR) SARS-CoV-2 RNA (RT-PCR) Quality VTE Prophylaxis VTE prophylaxis: mechanical ordered
[2025-10-15] MEDS: ONDANSETRON INJ 4 MG/2 ML VIAL IV PUSH ×4 (08:05→23:09)
[2025-10-15] MEDS: ACETAMINOPHEN 325 MG TABLET 650 MG PO (08:05)
[2025-10-15 08:06] LABS: Band Neutrophils Percent 13 % (0-6); Lymphocytes Absolute Manual 0.59 K/mm3 (1.1-4.5); Lymphocytes Percent Manual 4 % (18-44); Monocytes Absolute Manual 0.74 K/mm3 (0.1-0.90); Monocytes Percent Manual 5 % (3-9); Neutrophils Absolute Manual 13.55 K/mm3 (1.3-6.7); Neutrophils Percent Manual 78 % (46-73); Schistocytes None Seen; Total Cells Counted 100
[2025-10-15] MEDS: POTASSIUM CHLORIDE 20 MEQ ER TABLET 40 MEQ PO (09:52)
[2025-10-15] MEDS: POTASSIUM CHLORIDE INJ 40 MEQ in SODIUM CHLORIDE 0.9% IV 500 ML 130 MEQ IVPB (09:53)
--- NOTE | 2025-10-15 10:02 | P.PNUR_ITS ---
Progress Note: A&P Assessment and Plan (1) UTI (urinary tract infection): Qualifiers: Hematuria presence: without hematuria Urinary tract infection type: site unspecified Qualified Code(s): N39.0 - Urinary tract infection, site not specified Code(s): N39.0 - Urinary tract infection, site not specified Status: Acute Assessment and Plan: POD#1 s/p left RPG and stent placement -continue empiric broad spectrum abx -await blood and urine cultures -continue torres catheter for maximum urine drainage (2) Sepsis: Code(s): A41.9 - Sepsis, unspecified organism Status: Acute (3) Kidney stone: Code(s): N20.0 - Calculus of kidney Status: Acute Assessment and Plan: outpt stone management when infection cleared Subjective Subjective Date/Time Seen: 10/15/25 10:02 Interval history: had fever O/N, no significant pain. poor po intake. Review of Systems Review of Systems: All systems reviewed & are unremarkable except as noted in HPI and below Constitutional: Constitutional: Reports no additional constitutional complaints Eyes: Eyes: Reports no additional eye complaints ENT: Reports Normal hearing present Cardiovascular: Cardiovascular: Reports no additional cardiovascular complaints Gastrointestinal: Gastrointestinal: Reports no additional gastrointestinal complaints Genitourinary: Genitourinary: Reports no additional female genitourinary complaints Musculoskeletal: Musculoskeletal: Reports no additional musculoskeletal complaints Integumentary/Breasts: Skin/Breast: Reports system reviewed and no additional complaints, except as docu Neurologic: Reports system reviewed and no additional complaints, except as documented Exam Const: General: comfortable HENMT: Face/Nose/Sinus: Normal nares present Mouth: Yes moist mucous membranes Eyes: General: appearance normal, both eyes and all related structures Neck: Neck: supple Resp: Effort & Inspection: normal respiratory effort Cardio: Rate: regular rate GI: Inspection: non-distended GI Palp: No Tenderness to palpation present (GI) Urinary Catheter: Urinary Catheter: patent and draining and urine clear Skin: General skin exam: normal color Extrem: General: normal to inspection Psych: Mental Status: mental status grossly normal Objective Data Vital Signs Vital Signs: Vital Signs - 24 hr 10/14/25 11:02 10/14/25 11:17 10/14/25 11:30 Temperature 36.9 C Pulse Rate 118 H 113 H 107 H Respiratory Rate 18 16 19 Blood Pressure 122/65 122/62 126/68 Pulse Oximetry 99 98 98 Oxygen Delivery Room Air Oxygen Flow Rate 10/14/25 12:00 10/14/25 12:30 10/14/25 13:30 Temperature Pulse Rate 101 H 96 100 Respiratory Rate 21 H 13 16 Blood Pressure 119/66 121/57 L 123/67 Pulse Oximetry 97 98 100 Oxygen Delivery Oxygen Flow Rate 10/14/25 14:30 10/14/25 15:40 10/14/25 16:35 Temperature 39.5 C H 37.4 C Pulse Rate 93 100 112 H Respiratory Rate 16 14 16 Blood Pressure 128/58 L 143/74 H 121/60 Pulse Oximetry 100 100 100 Oxygen Delivery Simple Face Mask Oxygen Flow Rate 10 10/14/25 16:50 10/14/25 17:00 10/14/25 17:05 Temperature 38.3 C H Pulse Rate 110 H 142 H Respiratory Rate 15 23 H Blood Pressure 116/59 L 159/90 H Pulse Oximetry 100 99 Oxygen Delivery Simple Face Mask Nasal Cannula Oxygen Flow Rate 10 2 10/14/25 17:20 10/14/25 17:35 10/14/25 17:50 Temperature Pulse Rate 120 H 122 H 120 H Respiratory Rate 24 H 22 H 21 H Blood Pressure 147/76 H 120/62 103/51 L Pulse Oximetry 99 94 98 Oxygen Delivery Nasal Cannula Nasal Cannula Nasal Cannula Oxygen Flow Rate 2 2 2 10/14/25 18:05 10/14/25 18:23 10/14/25 18:44 Temperature 37.6 C Pulse Rate 115 H 112 H 108 H Respiratory Rate 24 H 22 H 19 Blood Pressure 109/91 H 103/51 L 99/51 L Pulse Oximetry 93 96 96 Oxygen Delivery Room Air Nasal Cannula Oxygen Flow Rate 2 10/14/25 21:40 10/15/25 00:17 10/15/25 06:07 Temperature 36.9 C 36.3 C L 36.6 C Pulse Rate 93 84 85 Respiratory Rate 18 12 14 Blood Pressure 90/50 L 97/44 L 105/43 L Pulse Oximetry 95 98 100 Oxygen Delivery Oxygen Flow Rate Intake/Output Intake/Output: Intake & Output 10/12/25 10/13/25 10/14/25 10/15/25 23:59 23:59 23:59 23:59 Intake Total 2100 850 Output Total 350 350 Balance 1750 500 Meds/Results Medications: Active Medications Generic Name Dose Route Start Last Admin Trade Name Freq PRN Reason Stop Dose Admin Acetaminophen 650 mg 10/14/25 22:14 10/15/25 08:05 Acetaminophen 325 Mg Tablet PO 650 mg Q6H PRN Administration Mild Pain (1-3) or Fever Hydrocodone Bitart/Acetaminophen 1 tab 10/14/25 22:14 Hydrocodone/Acetaminophen (*Crx) 5-325 Mg Tablet PO Q6H PRN Pain Rated 4-6 Dicyclomine HCl 20 mg 10/14/25 20:36 10/15/25 03:50 Dicyclomine Hcl 10 Mg Capsule PO 20 mg QID PRN Administration Abdominal Cramping Lactated Ringer's 1,000 mls @ 30 mls/hr 10/14/25 15:25 10/14/25 17:42 Lr - Lactated Ringers Iv IV CONT Infused .Q24H [facility] Infusion Lactated Ringer's 1,000 mls @ 30 mls/hr 10/14/25 15:25 10/14/25 18:24 Lr - Lactated Ringers Iv IV CONT Infused .Q24H [facility] Infusion Ceftriaxone Sodium 2 gm/ 100 mls @ 200 mls/hr 10/15/25 14:00 Sodium Chloride IVPB Q24H [facility] Potassium Chloride 40 meq/ 520 mls @ 130 mls/hr 10/15/25 08:15 10/15/25 09:53 Sodium Chloride IVPB 10/15/25 12:14 130 mls/hr ONCE ONE Administration Ondansetron HCl 4 mg 10/15/25 07:58 10/15/25 08:05 Ondansetron Inj 4 Mg/2 Ml Vial IV PUSH 4 mg Q4H PRN Administration Nausea And Vomiting Radiology Results: ITS Impressions Abdomen/Pelvis CT 10/14/25 12:56 IMPRESSION: 1. Left kidney hydronephrosis due to 5 mm stone proximal ureter. 2. Superimposed pyelonephritis not excluded. Retrograde Pyelogram 10/14/25 16:54 IMPRESSION: 1. As mentioned above Labs Labs: Laboratory Results - last 24 hr 10/14/25 10/14/25 10/14/25 11:28 11:39 13:47 WBC 11.7 H RBC 4.79 Hgb 14.1 Hct 40.9 MCV 85.4 MCH 29.4 MCHC 34.5 RDW 12.0 Plt Count 310 MPV 9.1 Immature Gran % (Auto) 0.4 Neut % (Auto) 81.0 H Lymph % (Auto) 8.3 L [place] % (Auto) 9.9 H Eos % (Auto) 0.1 Baso % (Auto) 0.3 Lymph # (Auto) 0.97 [place] # (Auto) 1.2 H Eos # (Auto) 0.0 Baso # (Auto) 0.0 Abs Immat Gran (auto) 0.05 H Absolute Neuts (auto) 9.4 H Absolute Nucleated RBC 0.000 Total Counted Neutrophils % (Manual) Band Neutrophils % Lymphocytes % (Manual) Monocytes % (Manual) Nucleated RBC % 0.0 Abs Neuts (Manual) Abs Lymphs (Manual) Abs Monocytes (Manual) Platelet Estimate Schistocytes Sodium 135 L Potassium 3.1 L Chloride 104 Carbon Dioxide 23 Anion Gap 8 BUN 11 Creatinine 0.71 Estim Creat Clear Calc Not Reportable Estimated GFR > 60 Glucose 118 H Calcium 9.7 Total Bilirubin 0.9 AST 26 ALT 21 Alkaline Phosphatase 78 Total Protein 7.4 Albumin 4.0 Lipase 49 Urine Color Yellow Urine Appearance Cloudy H Urine pH 5.0 Ur Specific [place] > 1.045 H Urine Protein 1+ H Urine Glucose (UA) Negative Urine Ketones 1+ H Ur Blood (Man) 2+ H Urine Nitrate Positive H Urine Bilirubin Negative Urine Urobilinogen 0.2 Add Ur Microanalysis Reviewed Leukocyte Esterase Rfl 2+ H Urine RBC 11-20 H Urine WBC >100 H Ur Squamous Epith Cells Occasional Urine Bacteria 4+ H Urine Casts 0-2 Influenza A (RT-PCR) Negative Influenza B (RT-PCR) Negative RSV (RT-PCR) Negative SARS-CoV-2 RNA (RT-PCR) Negative 10/15/25 06:11 WBC 14.9 H RBC 3.98 L Hgb 11.6 L Hct 34.8 L MCV 87.4 MCH 29.1 MCHC 33.3 RDW 12.2 Plt Count 249 MPV 9.8 Immature Gran % (Auto) Not Reportable Neut % (Auto) Not Reportable Lymph % (Auto) Not Reportable [place] % (Auto) Not Reportable Eos % (Auto) Not Reportable Baso % (Auto) Not Reportable Lymph # (Auto) Not Reportable [place] # (Auto) Not Reportable Eos # (Auto) Not Reportable Baso # (Auto) Not Reportable Abs Immat Gran (auto) Not Reportable Absolute Neuts (auto) Not Reportable Absolute Nucleated RBC Not Reportable Total Counted 100 Neutrophils % (Manual) 78 H Band Neutrophils % 13 H Lymphocytes % (Manual) 4 L Monocytes % (Manual) 5 Nucleated RBC % Not Reportable Abs Neuts (Manual) 13.55 H Abs Lymphs (Manual) 0.59 L Abs Monocytes (Manual) 0.74 Platelet Estimate Adequate Schistocytes None seen Sodium 138 Potassium 2.9 L Chloride 106 Carbon Dioxide 27 Anion Gap 5 BUN 11 Creatinine 0.79 Estim Creat Clear Calc 60 Estimated GFR > 60 Glucose 102 Calcium 8.6 Total Bilirubin AST ALT Alkaline Phosphatase Total Protein Albumin Lipase Urine Color Urine Appearance Urine pH Ur Specific [place] Urine Protein Urine Glucose (UA) Urine Ketones Ur Blood (Man) Urine Nitrate Urine Bilirubin Urine Urobilinogen Add Ur Microanalysis Leukocyte Esterase Rfl Urine RBC Urine WBC Ur Squamous Epith Cells Urine Bacteria Urine Casts Influenza A (RT-PCR) Influenza B (RT-PCR) RSV (RT-PCR) SARS-CoV-2 RNA (RT-PCR)
[2025-10-15] MEDS: HYDROcodone/acetaminophen (*CRX) 5-325 MG TABLET 1 TAB PO ×2 (12:28→23:09)
[2025-10-15 14:00] VITALS: BP 101/51; PULSE 84; RESP 15; TEMP 37.1; O2SAT 97
[2025-10-15] MEDS: cefTRIAXone 2 GM in SODIUM CHLORIDE 0.9% IV 100 ML 200 ML IVPB (14:39)
[2025-10-15 20:00] VITALS: PULSE 95; RESP 18; O2SAT 98
[2025-10-15 20:31] VITALS: BP 108/56; PULSE 95; RESP 18; TEMP 37.1; O2SAT 98
[2025-10-16 06:00] VITALS: BP 109/59; PULSE 88; RESP 17; TEMP 36.3; O2SAT 98
[2025-10-16 06:06] LABS: Hematocrit 34.8 % (37.0-47.0); Hemoglobin 11.3 g/dL (12.0-15.0); Mean Corpuscular HGB Conc 32.5 g/dl (32-36); Mean Corpuscular Hemoglobin 29.6 pg (26-34); Mean Corpuscular Volume 91.1 fl (80-100); Platelet Count Result 225 k/mm3 (150-375); Red Blood Count 3.82 M/mm3 (4.2-5.4); White Blood Count 10.4 K/mm3 (4.5-10.0)
[2025-10-16 06:24] LABS: Alanine Aminotransferase 37 U/L (6-35); Albumin Level 2.9 g/dL (3.5-5.1); Alkaline Phosphatase 76 U/L (38-126); Aspartate Amino Transferase 48 U/L (14-36); Bilirubin,Total 0.6 mg/dL (0.2-1.3); Blood Urea Nitrogen 8 mg/dL (7-17); Calcium 8.3 mg/dL (8.4-10.2); Carbon Dioxide 26 mmol/L (22-30); Chloride 108 mmol/L (98-107); Estimated CRCL calculation 72 ml/min; Estimated Glomerular Filt Rate > 60; Glucose 96 mg/dL (65-110); Potassium 3.2 mmol/L (3.4-5.0); Total Protein 5.8 g/dL (6.3-8.2)
[2025-10-16 06:36] LABS: Anion Gap 4 mmol/L (4-12); Sodium 138 mmol/L (137-145)
[2025-10-16 08:00] VITALS: O2SAT 98
[2025-10-16] MEDS: ONDANSETRON INJ 4 MG/2 ML VIAL IV PUSH ×2 (08:25→19:56)
[2025-10-16] MEDS: HYDROcodone/acetaminophen (*CRX) 5-325 MG TABLET 1 TAB PO ×2 (08:26→19:56)
--- NOTE | 2025-10-16 08:48 | P.PNIM_ITS ---
Assessment and Plan Assessment and Plan (1) Sepsis: Code(s): A41.9 - Sepsis, unspecified organism Status: Acute Assessment and Plan: Meets SIRS criteria: febrile, leukocytosis, tachycardia, tachypnea - lactic acid and blood cultures not obtained on admission, unfortunately patient received a dose of antibiotics prior to cultures. Will order blood cultures on 10/15, pending. - suspected source: infected stone - UA concerning for infection - CT abdomen pelvis reads left kidney hydronephrosis due to 5 mm stone in the proximal ureter, superimposed pyelonephritis is not excluded. - See plan below Resolved. Afebrile with stable vitals. Downtrending WBC. Continue to monitor. (2) UTI (urinary tract infection): Qualifiers: Hematuria presence: without hematuria Urinary tract infection type: site unspecified Qualified Code(s): N39.0 - Urinary tract infection, site not specified Code(s): N39.0 - Urinary tract infection, site not specified Status: Acute Assessment and Plan: - UA cloudy with specific gravity > 1.045, 1+ protein, 1+ ketones, 2+ blood, positive nitrate, 2+ leukocyte esterase, 11-20 RBC, >100 WBC, 4+ bacteria. - UC gram negative bacilli - No previous micro to review - Ceftriaxone started on 10/14 No longer endorsing UTI like symptoms. (3) Kidney stone: Code(s): N20.0 - Calculus of kidney Status: Acute Assessment and Plan: Infected obstructing stone CT abdomen pelvis reads left kidney hydronephrosis due to 5 mm stone in the proximal ureter, superimposed pyelonephritis is not excluded. - analgesics: hydrocodone and acetaminophen p.r.n. - monitor I/O - monitor renal function, remains WNL - urology consult underwent cystoscopy, left retrograde pyelogram, left ureter stent placement on 10/14 continue Torres catheter for max urine drainage. OK for catheter removal prior to hospital discharge urology will arrange for patient's follow-up surgery for definitive stone management in the upcoming weeks after confirming resolution of her UTI Medical Record Review I have reviewed the following patient records and this information was taken into consideration when formulating the assessment and plan.: previous labs Time Spent With Patient Time with patient: 25 - 35 minutes Subjective Date/time seen: 10/16/25 08:48 Interval history: 60-year-old female with a past medical history of osteoporosis and right kidney stone presents to the hospital with complaints of left-sided abdomen and flank pain. Patient is pleasant sitting up comfortably in bed. She is endorsing intermittent headaches that she describes similar to her chronic migraines. She denies any vision changes or associated dizziness/lightheadedness. She continues to endorse intermittent cramping but denies any other UTI like sympt oms. She states she has not had a bowel movement several days but denies any nausea/vomiting or abdominal pain. She does continue to pass flatus. Review of Systems Review of Systems: All systems reviewed & are unremarkable except as noted in HPI and below Exam Narrative: AF HR 88 RR 17 SPO2 98 BP 109/59 General: female in no acute respiratory distress who is nontoxic appearing, sitting up in bed. HEENT: Extraocular movement intact. Sclera clear and anicteric.No facial asymmetry. Chest: Lungs are clear to auscultation bilaterally. No wheezes or crackles. CV: Heart was regular rate and rhythm. Abd: Abdomen was soft. No tenderness. No CVA tenderness. Nondistended. Positive bowel sounds. : torres catheter in place with pavan colored urine. Objective Data Vital Signs Vital Signs: Vital Signs - 24 hr 10/15/25 14:00 10/15/25 18:00 10/15/25 20:00 Temperature 98.8 F Pulse Rate 84 95 Respiratory Rate 15 18 Blood Pressure 101/51 L Pulse Oximetry 97 98 Oxygen Delivery Room Air Room Air 10/15/25 20:31 10/16/25 06:00 Temperature 98.7 F 97.3 F L Pulse Rate 95 88 Respiratory Rate 18 17 Blood Pressure 108/56 L 109/59 L Pulse Oximetry 98 98 Oxygen Delivery Intake/Output Intake/Output: Intake & Output 10/13/25 10/14/25 10/15/25 10/16/25 23:59 23:59 23:59 23:59 Intake Total 2100 1217 475 Output Total 350 350 600 Balance 1750 867 -125 Meds/Results Medications: Active Medications Generic Name Dose Route Start Last Admin Trade Name Freq PRN Reason Stop Dose Admin Acetaminophen 650 mg 10/14/25 22:14 10/15/25 08:05 Acetaminophen 325 Mg Tablet PO 650 mg Q6H PRN Administration Mild Pain (1-3) or Fever Hydrocodone Bitart/Acetaminophen 1 tab 10/14/25 22:14 10/16/25 08:26 Hydrocodone/Acetaminophen (*Crx) 5-325 Mg Tablet PO 1 tab Q6H PRN Administration Pain Rated 4-6 Dicyclomine HCl 20 mg 10/14/25 20:36 10/15/25 03:50 Dicyclomine Hcl 10 Mg Capsule PO 20 mg QID PRN Administration Abdominal Cramping Lactated Ringer's 1,000 mls @ 30 mls/hr 10/14/25 15:25 10/14/25 17:42 Lr - Lactated Ringers Iv IV CONT Infused .Q24H [facility] Infusion Lactated Ringer's 1,000 mls @ 30 mls/hr 10/14/25 15:25 10/14/25 18:24 Lr - Lactated Ringers Iv IV CONT Infused .Q24H [facility] Infusion Ceftriaxone Sodium 2 gm/ 100 mls @ 200 mls/hr 10/15/25 14:00 10/15/25 15:10 Sodium Chloride IVPB Infused Q24H [facility] Infusion Ondansetron HCl 4 mg 10/15/25 07:58 10/16/25 08:25 Ondansetron Inj 4 Mg/2 Ml Vial IV PUSH 4 mg Q4H PRN Administration Nausea And Vomiting Radiology Results: ITS Impressions Abdomen/Pelvis CT 10/14/25 12:56 IMPRESSION: 1. Left kidney hydronephrosis due to 5 mm stone proximal ureter. 2. Superimposed pyelonephritis not excluded. Retrograde Pyelogram 10/14/25 16:54 IMPRESSION: 1. As mentioned above Labs Labs: Laboratory Results - last 24 hr 10/16/25 05:37 WBC 10.4 H RBC 3.82 L Hgb 11.3 L Hct 34.8 L MCV 91.1 MCH 29.6 MCHC 32.5 RDW 12.3 Plt Count 225 MPV 9.9 Sodium 138 Potassium 3.2 L Chloride 108 H Carbon Dioxide 26 Anion Gap 4 BUN 8 Creatinine 0.65 L Estim Creat Clear Calc 72 Estimated GFR > 60 Glucose 96 Calcium 8.3 L Total Bilirubin 0.6 AST 48 H ALT 37 H Alkaline Phosphatase 76 Total Protein 5.8 L Albumin 2.9 L Quality VTE Prophylaxis VTE prophylaxis: mechanical ordered
--- NOTE | 2025-10-16 13:03 | WPDUROPN2 ---
Progress Note: A&P Assessment and Plan (1) UTI (urinary tract infection): Qualifiers: Hematuria presence: without hematuria Urinary tract infection type: site unspecified Qualified Code(s): N39.0 - Urinary tract infection, site not specified Code(s): N39.0 - Urinary tract infection, site not specified Status: Acute Assessment and Plan: 60yF with left ureteral stone and UTI/sepsis s/p left ureteral stent placement 10/14/2025 - UCx preliminarily growing gram neg bacilli. Blood cultures pending. Continue empiric broad spectrum abx and tailor to culture sensitivities as appropriate - Await blood and urine cultures - Continue Baer catheter for maximum urine drainage. OK for catheter removal prior to hospital discharge - Urology will arrange for patient's follow-up surgery for definitive stone management in the upcoming weeks after confirming resolution of her UTI - Remainder of management per primary (2) Sepsis: Code(s): A41.9 - Sepsis, unspecified organism Status: Acute (3) Kidney stone: Code(s): N20.0 - Calculus of kidney Status: Acute Assessment and Plan: outpt stone management when infection cleared Subjective Subjective Date/Time Seen: 10/16/25 13:03 Interval history: NAEO. Exam Narrative: General: Alert, no acute distress Head: Normocephalic, atraumatic Eyes: Extraocular movements intact Neck: No JVD, trachea midline Respiratory: Symmetric chest rise, nonlabored breathing on room air CV: Normal rate, adequate peripheral perfusion Abdomen: Soft, nontender, nondistended Skin: Warm/dry Extremities: No peripheral edema, no cyanosis Neuro: No focal deficits Psych: Answers questions appropriately, appropriate mood Objective Data Vital Signs Vital Signs: Vital Signs - 24 hr 10/15/25 14:00 10/15/25 18:00 10/15/25 20:00 Temperature 37.1 C Pulse Rate 84 95 Respiratory Rate 15 18 Blood Pressure 101/51 L Pulse Oximetry 97 98 Oxygen Delivery Room Air Room Air 10/15/25 20:31 10/16/25 06:00 10/16/25 08:00 Temperature 37.1 C 36.3 C L Pulse Rate 95 88 Respiratory Rate 18 17 Blood Pressure 108/56 L 109/59 L Pulse Oximetry 98 98 98 Oxygen Delivery Room Air Intake/Output Intake/Output: Intake & Output 10/13/25 10/14/25 10/15/25 10/16/25 23:59 23:59 23:59 23:59 Intake Total 2100 1217 475 Output Total 350 350 600 Balance 1750 867 -125 Meds/Results Medications: Active Medications Generic Name Dose Route Start Last Admin Trade Name Freq PRN Reason Stop Dose Admin Acetaminophen 650 mg 10/14/25 22:14 10/15/25 08:05 Acetaminophen 325 Mg Tablet PO 650 mg Q6H PRN Administration Mild Pain (1-3) or Fever Hydrocodone Bitart/Acetaminophen 1 tab 10/14/25 22:14 10/16/25 08:26 Hydrocodone/Acetaminophen (*Crx) 5-325 Mg Tablet PO 1 tab Q6H PRN Administration Pain Rated 4-6 Dicyclomine HCl 20 mg 10/14/25 20:36 10/15/25 03:50 Dicyclomine Hcl 10 Mg Capsule PO 20 mg QID PRN Administration Abdominal Cramping Lactated Ringer's 1,000 mls @ 30 mls/hr 10/14/25 15:25 10/16/25 09:44 Lr - Lactated Ringers Iv IV CONT Not Given .Q24H HALIMA Lactated Ringer's 1,000 mls @ 30 mls/hr 10/14/25 15:25 10/16/25 09:44 Lr - Lactated Ringers Iv IV CONT Not Given .Q24H HALIMA Ceftriaxone Sodium 2 gm/ 100 mls @ 200 mls/hr 10/15/25 14:00 10/15/25 15:10 Sodium Chloride IVPB Infused Q24H HALIMA Infusion Ondansetron HCl 4 mg 10/15/25 07:58 10/16/25 08:25 Ondansetron Inj 4 Mg/2 Ml Vial IV PUSH 4 mg Q4H PRN Administration Nausea And Vomiting Radiology Results: ITS Impressions Abdomen/Pelvis CT 10/14/25 12:56 IMPRESSION: 1. Left kidney hydronephrosis due to 5 mm stone proximal ureter. 2. Superimposed pyelonephritis not excluded. Retrograde Pyelogram 10/14/25 16:54 IMPRESSION: 1. As mentioned above Labs Labs: Laboratory Results - last 24 hr 10/16/25 05:37 WBC 10.4 H RBC 3.82 L Hgb 11.3 L Hct 34.8 L MCV 91.1 MCH 29.6 MCHC 32.5 RDW 12.3 Plt Count 225 MPV 9.9 Sodium 138 Potassium 3.2 L Chloride 108 H Carbon Dioxide 26 Anion Gap 4 BUN 8 Creatinine 0.65 L Estim Creat Clear Calc 72 Estimated GFR > 60 Glucose 96 Calcium 8.3 L Total Bilirubin 0.6 AST 48 H ALT 37 H Alkaline Phosphatase 76 Total Protein 5.8 L Albumin 2.9 L
[2025-10-16] MEDS: cefTRIAXone 2 GM in SODIUM CHLORIDE 0.9% IV 100 ML IVPB (13:45)
[2025-10-16 14:00] VITALS: BP 110/47; PULSE 77; RESP 16; TEMP 36.3; O2SAT 98
[2025-10-16] MEDS: SENNA/DOCUSATE SODIUM TABLET 1 TAB PO (19:56)
[2025-10-16 22:00] VITALS: BP 110/54; PULSE 77; RESP 18; TEMP 36.9; O2SAT 99
[2025-10-17 06:00] VITALS: BP 114/61; PULSE 74; RESP 18; TEMP 36.9; O2SAT 98
[2025-10-17 06:21] LABS: Hematocrit 35.9 % (37.0-47.0); Hemoglobin 11.9 g/dL (12.0-15.0); Mean Corpuscular HGB Conc 33.1 g/dl (32-36); Mean Corpuscular Hemoglobin 29.3 pg (26-34); Mean Corpuscular Volume 88.4 fl (80-100); Platelet Count Result 246 k/mm3 (150-375); Red Blood Count 4.06 M/mm3 (4.2-5.4); White Blood Count 7.3 K/mm3 (4.5-10.0)
[2025-10-17 06:35] LABS: Alanine Aminotransferase 33 U/L (6-35); Albumin Level 3.2 g/dL (3.5-5.1); Alkaline Phosphatase 79 U/L (38-126); Anion Gap 3 mmol/L (4-12); Aspartate Amino Transferase 34 U/L (14-36); Bilirubin,Total 0.4 mg/dL (0.2-1.3); Blood Urea Nitrogen 8 mg/dL (7-17); Calcium 8.8 mg/dL (8.4-10.2); Carbon Dioxide 28 mmol/L (22-30); Chloride 107 mmol/L (98-107); Estimated CRCL calculation 74 ml/min; Estimated Glomerular Filt Rate > 60; Glucose 100 mg/dL (65-110); Potassium 3.5 mmol/L (3.4-5.0); Sodium 138 mmol/L (137-145); Total Protein 6.0 g/dL (6.3-8.2)
[2025-10-17 08:10] VITALS: PULSE 74; RESP 18; O2SAT 98
--- NOTE | 2025-10-17 13:44 | WPDUROPN2 ---
Progress Note: A&P Assessment and Plan (1) UTI (urinary tract infection): Qualifiers: Hematuria presence: without hematuria Urinary tract infection type: site unspecified Qualified Code(s): N39.0 - Urinary tract infection, site not specified Code(s): N39.0 - Urinary tract infection, site not specified Status: Acute Assessment and Plan: Pleasant 60yF with left ureteral stone and UTI/sepsis s/p left ureteral stent placement 10/14/2025. - UCx EColi/Enterobacter sensitive to ceftriaxone. Blood cultures pending. - Baer has been removed. She needs to get OOB to urinate, avoid bedpan/PureWick. - Urology team to arrange patient's follow-up surgery for definitive stone management in the upcoming weeks after confirming resolution of her UTI. - Remainder of management per primary. We will follow peripherally. Please call with questions. (2) Kidney stone: Code(s): N20.0 - Calculus of kidney Status: Acute Assessment and Plan: outpt stone management with Dr. Grimes after infection clears (3) Sepsis: Qualifiers: Sepsis acute organ dysfunction status: unspecified Sepsis type: Escherichia coli Qualified Code(s): A41.51 - Sepsis due to Escherichia coli [E. coli] Code(s): A41.9 - Sepsis, unspecified organism Status: Resolved Subjective Subjective Date/Time Seen: 10/17/25 13:44 Interval history: NAEO; Leukocytosis resolved, WBC 7.3 from 10.4. Renal function stable, Cr 0.63. Afebrile. 10/14/25 Urine culture: EColi/Enterobacter sensitive to ceftriaxone. Blood cultures are pending. Baer has been removed. Patient is comfortable on exam. Eager for discharge. We discussed need for outpatient stone management and UTI treatment. Exam Narrative: General: Alert, no acute distress Head: Normocephalic, atraumatic Respiratory: Symmetric chest rise, nonlabored breathing on room air Abdomen: Soft, nontender Skin: Warm/dry Neuro: No focal deficits Psych: Answers questions appropriately, appropriate mood Objective Data Vital Signs Vital Signs: Vital Signs - 24 hr 10/16/25 14:00 10/16/25 20:10 10/16/25 22:00 Temperature 97.4 F L 98.4 F Pulse Rate 77 77 Respiratory Rate 16 18 Blood Pressure 110/47 L 110/54 L Pulse Oximetry 98 99 Oxygen Delivery Room Air 10/17/25 06:00 10/17/25 08:10 Temperature 98.4 F Pulse Rate 74 74 Respiratory Rate 18 18 Blood Pressure 114/61 Pulse Oximetry 98 98 Oxygen Delivery Room Air Intake/Output Intake/Output: Intake & Output 10/14/25 10/15/25 10/16/25 10/17/25 23:59 23:59 23:59 23:59 Intake Total 2100 1217 2715 540 Output Total 399 890 6834 1100 Balance 2842 936 5716 -560 Meds/Results Medications: Active Medications Generic Name Dose Route Start Last Admin Trade Name Freq PRN Reason Stop Dose Admin Acetaminophen 650 mg 10/14/25 22:14 10/15/25 08:05 Acetaminophen 325 Mg Tablet PO 650 mg Q6H PRN Administration Mild Pain (1-3) or Fever Hydrocodone Bitart/Acetaminophen 1 tab 10/14/25 22:14 10/16/25 19:56 Hydrocodone/Acetaminophen (*Crx) 5-325 Mg Tablet PO 1 tab Q6H PRN Administration Pain Rated 4-6 Dicyclomine HCl 20 mg 10/14/25 20:36 10/15/25 03:50 Dicyclomine Hcl 10 Mg Capsule PO 20 mg QID PRN Administration Abdominal Cramping Lactated Ringer's 1,000 mls @ 30 mls/hr 10/14/25 15:25 10/16/25 09:44 Lr - Lactated Ringers Iv IV CONT Not Given .Q24H HALIMA Lactated Ringer's 1,000 mls @ 30 mls/hr 10/14/25 15:25 10/16/25 09:44 Lr - Lactated Ringers Iv IV CONT Not Given .Q24H HALIMA Ceftriaxone Sodium 2 gm/ 100 mls @ 200 mls/hr 10/15/25 14:00 10/16/25 13:45 Sodium Chloride IVPB 100 mls/hr Q24H HALIMA Administration Ondansetron HCl 4 mg 10/15/25 07:58 10/16/25 19:56 Ondansetron Inj 4 Mg/2 Ml Vial IV PUSH 4 mg Q4H PRN Administration Nausea And Vomiting Polyethylene Glycol 17 gm 10/16/25 13:55 10/17/25 08:54 Polyethylene Glycol 3350 17 Gm Powd.Pack PO 17 gm QAM HALIMA Administration Senna/Docusate Sodium 1 tab 10/16/25 21:00 10/16/25 19:56 Senna/Docusate Sodium Tablet PO 1 tab HS HALIMA Administration Radiology Results: ITS Impressions Abdomen/Pelvis CT 10/14/25 12:56 IMPRESSION: 1. Left kidney hydronephrosis due to 5 mm stone proximal ureter. 2. Superimposed pyelonephritis not excluded. Retrograde Pyelogram 10/14/25 16:54 IMPRESSION: 1. As mentioned above Labs Labs: Laboratory Results - last 24 hr 10/17/25 06:10 WBC 7.3 RBC 4.06 L Hgb 11.9 L Hct 35.9 L MCV 88.4 MCH 29.3 MCHC 33.1 RDW 12.1 Plt Count 246 MPV 9.8 Sodium 138 Potassium 3.5 Chloride 107 Carbon Dioxide 28 Anion Gap 3 L BUN 8 Creatinine 0.63 L Estim Creat Clear Calc 74 Estimated GFR > 60 Glucose 100 Calcium 8.8 Total Bilirubin 0.4 AST 34 ALT 33 Alkaline Phosphatase 79 Total Protein 6.0 L Albumin 3.2 L
--- NOTE | 2025-10-17 13:56 | P.DS_ITS ---
DS: Admitting Diagnosis Discharge Date 10/17/2025 Admitting Diagnosis sepsis uti kidney stone DS: Discharge Diagnosis Discharge Diagnosis (1) Sepsis: Qualifiers: Sepsis acute organ dysfunction status: unspecified Sepsis type: Escherichia coli Qualified Code(s): A41.51 - Sepsis due to Escherichia coli [E. coli] Code(s): A41.9 - Sepsis, unspecified organism Status: Resolved (2) UTI (urinary tract infection): Qualifiers: Hematuria presence: without hematuria Urinary tract infection type: site unspecified Qualified Code(s): N39.0 - Urinary tract infection, site not specified Code(s): N39.0 - Urinary tract infection, site not specified Status: Acute (3) Kidney stone: Code(s): N20.0 - Calculus of kidney Status: Acute DS: Summary Hospital Course Reason for hospitalization: sepsis uti kidney stone Hospital Course: 60-year-old female with a past medical history of osteoporosis and nephrolithiasis who presented on 10/14/2025 with several days of left-sided flank and abdominal pain, nausea, chills, poor oral intake, and cloudy urine. Initial evaluation in the ED was notable for tachycardia, leukocytosis, hypokalemia, and a urinalysis consistent with urinary tract infection. CT abdomen and pelvis demonstrated left hydronephrosis secondary to a 5 mm proximal ureteral stone, with superimposed pyelonephritis not excluded. She met SIRS criteria and was treated for sepsis secondary to an infected obstructing ureteral stone. She was started on IV ceftriaxone, and Urology was consulted. On 10/14/2025, she underwent cystoscopy with left retrograde pyelogram and left ureteral stent placement for decompression; a Baer catheter was placed intraoperatively. Postoperatively, she developed transient fever and tachycardia, which improved with antibiotics, IV fluids, and supportive care. Urine culture grew E. coli/Enterobacter species sensitive to ceftriaxone; blood cultures were obtained after antibiotic administration and remained no growth to date at discharge. Her leukocytosis resolved, renal function remained stable throughout admission, and she became afebrile with improving symptoms. The Baer catheter was removed, and she was able to void spontaneously. By discharge, her sepsis had resolved, pain was well controlled on oral medications, and she was tolerating diet. Patient had no complaints at time of discharge denying chest pain, shortness a breath, palpitations, nausea/vomiting, and abdominal pain. Patient able to ambulate throughout the room at her baseline and denies any dizziness/lightheadedness. Patient discharged home in a stable condition. She is to follow up with her primary care provider in 1 week and Urology as scheduled. Status at Discharge Functional status at discharge: independent ambulation Time Spent with Patient Time attestation: Total time spent providing and/or coordinating discharge services: Time spent: Greater than 30 minutes Exam Narrative: AF HR 74 RR 18 SPO2 98 BP 114/61 General: female in no acute respiratory distress who is nontoxic appearing, sitting up in bed. HEENT: Extraocular movement intact. Sclera clear and anicteric.No facial asymmetry. Chest: Lungs are clear to auscultation bilaterally. No wheezes or crackles. CV: Heart was regular rate and rhythm. Abd: Abdomen was soft. No tenderness. No CVA tenderness. Nondistended. Positive bowel sounds. DS: Data Data Completed and Pending Completed studies during hospitalization: Retrograde pyelogram Abdomen pelvis CT Labs on day of discharge: Labs from last 24 hours 10/17/25 06:10 WBC 7.3 RBC 4.06 L Hgb 11.9 L Hct 35.9 L MCV 88.4 MCH 29.3 MCHC 33.1 RDW 12.1 Plt Count 246 MPV 9.8 Sodium 138 Potassium 3.5 Chloride 107 Carbon Dioxide 28 Anion Gap 3 L BUN 8 Creatinine 0.63 L Estim Creat Clear Calc 74 Estimated GFR > 60 Glucose 100 Calcium 8.8 Total Bilirubin 0.4 AST 34 ALT 33 Alkaline Phosphatase 79 Total Protein 6.0 L Albumin 3.2 L Discharge Plan Discharge Attending physician on discharge: Kathy Allen Consulting providers: Davion Vargas; Leigh Mcgarry Discharging Clinician: Leigh Mcgarry Anticipated Discharge Date/Time: 10/17/25 13:20 Patient Disposition: Home Activity: as tolerated Diet: as tolerated Discharge Instructions: UROLOGY DISCHARGE INSTRUCTIONS: Instructions for your ureteral stent:?? It is normal to have blood in the urine, urinary frequency and/or urgency, and abdominal/back cramping with a ureteral stent.? Take the medications we have have provided you to control these symptoms.? Medications: - Tamsulosin ? take this medication once a day at bedtime which will help to minimize discomfort from your ureteral stent - Levsin (AKA Hyoscyamine) ? take this medication every 4 hours as needed to minimize ureteral stent discomfort Activity:? Advance as tolerated. Diet: No restrictions. Work: OK to return to work as you see fit. Pain: Try [id number] Tylenol or Ibuprofen first, if this doesn't help then take the prescriptions we may have provided you. Please note: It is normal to have some blood in your urine.? This is expected given the urologic procedure and as long as you have a ureteral stent in place. Notify us if: Fevers greater than 100.4 Fahrenheit, pain uncontrolled with medications, persistent vomiting, inability to urinate or if you are passing large blood clots in your urine, or if you have any questions. Follow up:? The urology office will contact you in the near future to schedule a follow-up surgery for definitive stone treatment in the upcoming weeks after confirming resolution of your urinary tract infection. Call the urology clinic at with any questions or concerns. Discharge disposition: Diagnosis * Urinary tract infection * Kidney infection (pyelonephritis) * Kidney stone with ureteral stent in place Medications * Cefpodoxime: Take as prescribed until completed. Do not miss doses. Diet / Hydration * Drink plenty of fluids unless otherwise instructed (goal: clear or light- yellow urine). * Resume regular diet as tolerated. Follow-Up * Urology: Follow up as scheduled for definitive stone management and stent removal/exchange. * Primary care: Follow up as needed after discharge. Return to the Emergency Department or Call Your Provider If You Have * Fever >=100.4?F (38?C), chills, or worsening flank pain * Nausea or vomiting preventing oral medications or fluids * Increasing pain not controlled with prescribed medications * Inability to urinate or significantly decreased urine output * Heavy bleeding or large clots in urine * Symptoms of allergic reaction to antibiotics (rash, swelling, shortness of breath) Take caution while standing, rising, or moving Change positions slowly taking a break between each position change If you standing feel dizzy sit back down and take a break Encouraged to continue with yearly vaccinations Return to the emergency department if he developed sudden shortness of breath, chest pain, nausea, vomiting, upset stomach or intractable diarrhea Return to the emergency department if you develop fever greater than 100.5 Follow-up with the primary care physician within 1-2 weeks Thank you for choosing [facility] for your healthcare needs Patient Instructions: Antibiotic Form, Hyoscyamine (By mouth), Cefpodoxime Proxetil (By mouth), Tamsulosin (By mouth) Patient Language: Maori Stand Alone Forms: General Discharge Information Follow-up/Referrals: Jalen Oviedo DO [Primary Care Provider, Family Practice] - 1 Week Mango Grimes MD [Physician, Urology] Referral Note: The urology office will contact you to schedule your follow-up surgery for definitive stone treatment in the upcoming weeks after confirming resolution of your UTI. Davion Vargas MD [Physician, Urology] - Call for Appointment Discharge Medications: New tamsulosin 0.4 mg capsule 0.4 mg PO HS Qty: 30 0RF hyoscyamine sulfate 0.125 mg tablet, sublingual 0.125 mg sublingual QID PRN (Reason: dyspepsia) Qty: 30 0RF cefpodoxime 200 mg tablet 200 mg PO Q12H Qty: 8 0RF Rx Instructions: must administer with a meal/food Date of admission: 10/14/25 15:43 Primary Care Provider: Jalen Oviedo Admitting Provider: Maeve Perez Attending physician on admission: Maeve Perez Condition: Stable Hospitalist MIPS Heart Failure (Exclusion) Patient has history of Heart Transplant or Left Ventricular Assistive Device?: No IF YES, STOP HERE Heart Failure (Qualifier) Patient has current or prior documentation of LVEF less than or equal to 40%, or mod/servere depressed LVSF?: No IF NO, STOP HERE
[2025-10-17 14:00] VITALS: BP 105/68; PULSE 75; RESP 16; TEMP 37; O2SAT 99
[2025-10-17] MEDS: cefTRIAXone 2 GM in SODIUM CHLORIDE 0.9% IV 100 ML IVPB (14:11)
--- NOTE | 2025-10-24 08:15 | PC.NURSE ---
Blood cx are negative.
== END 2025-10-17 15:21 | disposition home or self-care (01) ==
LOC: ANHED 15:22 → ANH3MEDSUR 10-15 06:58
PROVIDERS: Emergency Medicine; Nurse Practitioner Adult Health; Student in an Organized Health Care Education/Training Program; Urology; Admitting Provider Internal Medicine; Emergency Provider Emergency Medicine; PCP Family Medicine; Visit Provider General Practice
PROC: (CPT 52352; principal; 2025-10-14 15:45)
DX: A41.51 Sepsis due to Escherichia coli [E. coli] (principal); B96.29 Other Escherichia coli [E. coli] as the cause of diseases classified elsewhere; N39.0 Urinary tract infection, site not specified; N13.2 Hydronephrosis with renal and ureteral calculous obstruction; R00.0 Tachycardia, unspecified; I45.10 Unspecified right bundle-branch block; M81.0 Age-related osteoporosis without current pathological fracture; M54.10 Radiculopathy, site unspecified; Z20.822 Contact with and (suspected) exposure to COVID-19; Z16.24 Resistance to multiple antibiotics; Z79.1 Long term (current) use of non-steroidal anti-inflammatories (NSAID); Z87.891 Personal history of nicotine dependence; Z87.442 Personal history of urinary calculi; Z90.49 Acquired absence of other specified parts of digestive tract
CPT/HCPCS: 52332; 36415; 74177; 74420; 80048; 80053; 81001; 83690; 85025; 85027; 87040; 87077; 87086; 87186; 87637; 93005; 96374; 96375; 99285; A9270; C1758; C1769; C2617; G0378; J0330; J0616; J0696; J1885; J2003; J2250; J2405; J2704; J3010; J3480; J7030; J7040; J7120; Q9966; Q9967